=== PATIENT | male | born 1960 | race Caucasian/White ===

== ENCOUNTER 2018-08-14 10:19 | Inpatient (IN) ==
[2018-08-14] MEDS ORDERED: Sod Chloride 0.9% Inj 1,000 ML IV.SIG ONE (11:05)
[2018-08-14 11:20] LABS: Baso # (Auto) 0.2 th/mm3 (0.0-0.2); Baso % (Auto) 0.8 % (0.0-2.0); Eos # (Auto) 0.1 th/mm3 (0.0-0.4); Eos % (Auto) 0.4 % (0.0-4.0); Hemoglobin 15.2 gm/dL (13.0-17.0); Lymph # (Auto) 3.2 th/mm3 (1.0-4.8); Lymph % (Auto) 10.3 % (9.0-44.0); Mean Corpuscular Hemoglobin 31.5 pg (27.0-34.0); Mean Corpuscular Volume 103.5 fL (80.0-100.0); Mean Platelet Volume 10.4 fL (7.0-11.0); Mono # (Auto) 3.3 th/mm3 (0.0-0.9); Mono % (Auto) 10.6 % (0.0-8.0); Neut # (Auto) 24.2 th/mm3 (1.8-7.7); Neut % (Auto) 77.9 % (16.0-70.0); Platelet Count 336 th/mm3 (150-450); Red Blood Count 4.83 mil/mm3 (4.50-5.90); Red Cell Distribution Width 14.5 % (11.6-17.2)
--- NOTE | 2018-08-14 11:21 | ED ---
HPI General Chief complaint: Diabetic Stated complaint: diabeties Time Seen by Provider: 08/14/18 10:53 History of Present Illness HPI narrative: This patient reports that he has been up all night with vomiting and some diarrhea. He is insulin-dependent diabetic. He did not take his insulin today. Symptoms are severe. Paramedics bring him in and blood sugar just read critical high. His temperature was too low to register. He feels lethargic. He has no injury. He denies having fever. Duration 24 hours. No exacerbating factors. No alleviating factors. Related Data Home Medications Medication Instructions Recorded Confirmed insulin glargine [Lantus U-100 40 unit SUBCUT DAILY 08/14/18 08/14/18 Insulin] insulin regular human [Novolin R 1 sliding scale dose SUBCUT UD 08/14/18 Regular U-100 Insuln] Allergies Allergy/AdvReac Type Severity Reaction Status Date / Time No Known Allergies Allergy Verified 08/14/18 10:25 Review of Systems ROS: all other systems reviewed are negative [facility] Medical History Medical History Hx of diabetes mellitus (Acute) Surgical History Surgical History History of ear surgery (Acute) Hx of inguinal hernia repair (Acute) Social History Social History Substance History: No History of Abuse Second Hand Smoke Exposure: No Smoking Status: Never smoker How Often Do You Have a Drink Containing Alcohol: 2 to 4 times a month Recent Travel in [facility] within the Last 8 Weeks: No Recent Out of Country Travel within the Last 8 Weeks: No Immunization History Tetanus Immunization: Unsure Exam Narrative Exam Narrative: GENERAL: Thin lethargic well-developed patient who is hyperglycemic and hypothermic. Ketone breath is obvious SKIN: Focused skin assessment reveals no rash and nodules. Skin is Warm and dry. HEAD: Atraumatic. Normocephalic. EYES: Pupils equal and round. No scleral icterus. No injection or drainage. ENT: No nasal bleeding or discharge. Mucous membranes pink and moist. NECK: Trachea midline. No JVD. No meningeal signs CARDIOVASCULAR: Regular rate and rhythm. No murmur appreciated. RESPIRATORY: No accessory muscle use. Clear to auscultation. Breath sounds equal bilaterally. GASTROINTESTINAL: Abdomen soft, non-tender, nondistended. Hepatic and splenic margins not palpable. MUSCULOSKELETAL: No obvious deformities. No clubbing. No cyanosis. No edema. NEUROLOGICAL: Awake but drowsy. No obvious cranial nerve deficits. Motor grossly within normal limits. Normal speech. PSYCHIATRIC: Sluggish and lethargic mood and affect; insight and judgment a bit reduced Course Initial Documented Vital Signs Pulse Rate 91 H 08/14/18 10:26 Respiratory Rate 18 08/14/18 10:26 Blood Pressure 179/58 H 08/14/18 10:26 Pulse Oximetry 100 08/14/18 10:26 Last Documented Vital Signs Temperature 89.7 F L 08/14/18 11:32 Pulse Rate 93 H 08/14/18 11:32 Respiratory Rate 20 08/14/18 11:32 Blood Pressure 138/61 08/14/18 11:32 Pulse Oximetry 100 08/14/18 11:32 Critical Care Time Critical Care Time: Yes Total Critical Care Time: 82 Attestation: Aggregate critical care time was 82 minutes. Time to perform other separately billable procedures was not included in the critical care time. My time did not include minutes spent treating any other patients simultaneously or on activities that did not directly contribute to the patient's treatment. The services I provided to this patient were to treat and/or prevent clinically significant deterioration that could result in: Cardiopulmonary arrest, cardiac arrhythmia, metabolic instability I provided critical care services requiring my management, as noted below: Chart data review, documentation time, medication orders and management, vital sign assessments/reviewing monitor data, ordering and reviewing lab tests, ordering and interpreting/reviewing x-rays and diagnostic studies, care of the patient and discussion of the patient with the admitting physicians. Medical Decision Making MDM Narrative Medical decision making narrative: 58-year-old male who presents critically ill with suspected DKA and hypothermia. He has a rectal temp of 89 degrees I placed bilateral external jugular 18-gauge IVs. He has a third 18-gauge IV in the left arm. We are bolusing him multiple liters of saline and running one through the warmer. We placed him under the bear hugger warming blanket. I gave him 10 units IV regular insulin. Extensive lab studies have been ordered. EKG shows a sinus rhythm at 89. I do not see ectopy. I have given him a now 3 L of saline IV. I have given him IV calcium and 2 A of sodium bicarbonate Patient is very metabolically deranged. I discussed with the semiconductor wafers etch operator Dr. Leone who accepts him as an emergent transfer to the main hospital ICU. We are placing a fourth IV now. Patient is getting started on insulin drip plus normal saline at 250 an hour through the warmer. Dr. Leone is ordering a bicarbonate drip. Medical Screen Exam Complete: Yes Emergency Medical Condition: Yes Differential Diagnosis Differential Diagnosis: DKA, hypothermia, cardiac arrhythmia Medical Records Medical records reviewed: Yes I reviewed the patient's medical records. Lab Data Lab results reviewed: Yes I reviewed the patient's lab results. Result diagrams: 08/14/18 10:40 08/14/18 10:35 Lab Results 08/14/18 08/14/18 08/14/18 Range/Units 10:35 10:40 10:40 CBC w Diff Slide review pending WBC 31.0 H (4.0-11.0) th/mm3 RBC 4.83 (4.50-5.90) mil/mm3 Hgb 15.2 (13.0-17.0) gm/dL Hct 50.0 (39.0-51.0) % MCV 103.5 H (80.0-100.0) fL MCH 31.5 (27.0-34.0) pg MCHC 30.4 L (32.0-36.0) % RDW 14.5 (11.6-17.2) % Plt Count 336 (150-450) th/mm3 MPV 10.4 (7.0-11.0) fL Neut % (Auto) 77.9 H (16.0-70.0) % Lymph % (Auto) 10.3 (9.0-44.0) % [place]ama % (Auto) 10.6 H (0.0-8.0) % Eos % (Auto) 0.4 (0.0-4.0) % Baso % (Auto) 0.8 (0.0-2.0) % Neut # (Auto) 24.2 H (1.8-7.7) th/mm3 Lymph # (Auto) 3.2 (1.0-4.8) th/mm3 [place]ama # (Auto) 3.3 H (0.0-0.9) th/mm3 Eos # (Auto) 0.1 (0.0-0.4) th/mm3 Baso # (Auto) 0.2 (0.0-0.2) th/mm3 WBC Differential . Diff Scan Auto diff confirmed Differential Comment . Platelet Estimate Normal (Normal) Platelet Morphology Normal (Normal) RBC Morphology Normal (Normal) Puncture Site Patient Temperature O2 Saturation (90-100) % ABG pH (7.380-7.420) ABG pCO2 (38-42) mmHg ABG pO2 (61-120) mmHg ABG HCO3 (22-26) mmol/L ABG O2 Content (12.0-20.0) Vol % ABG Base Excess (-2-2) mmol/L ABG Methemoglobin (0-2) % Noman Test Hemoglobin (12.0-16.0) G/DL Carboxyhemoglobin (0-4) % O2 Delivery Device Critical Value Sodium 127 L (136-145) meq/L Potassium 6.6 H* (3.5-5.1) meq/L Chloride 90 L (98-107) meq/L Carbon Dioxide 3.4 L (21.0-32.0) meq/L Anion Gap 34 H (5-15) meq/L BUN 41 H (7-18) mg/dL Creatinine 2.60 H (0.60-1.30) mg/dL Estimated GFR 25 L (>89) mL/min Random Glucose 1014 H* (74-106) mg/dL Lactic Acid 4.8 H* (0.4-2.0) mmol/L Calcium 8.2 L (8.5-10.1) mg/dL Total Bilirubin 0.5 (0.2-1.0) mg/dL AST 30 (15-37) U/L ALT 66 (12-78) U/L Alkaline Phosphatase 91 (45-117) U/L Total Protein 7.4 (6.4-8.2) g/dL Albumin 3.9 (3.4-5.0) g/dL 08/14/18 Range/Units 11:26 CBC w Diff WBC (4.0-11.0) th/mm3 RBC (4.50-5.90) mil/mm3 Hgb (13.0-17.0) gm/dL Hct (39.0-51.0) % MCV (80.0-100.0) fL MCH (27.0-34.0) pg MCHC (32.0-36.0) % RDW (11.6-17.2) % Plt Count (150-450) th/mm3 MPV (7.0-11.0) fL Neut % (Auto) (16.0-70.0) % Lymph % (Auto) (9.0-44.0) % [place] % (Auto) (0.0-8.0) % Eos % (Auto) (0.0-4.0) % Baso % (Auto) (0.0-2.0) % Neut # (Auto) (1.8-7.7) th/mm3 Lymph # (Auto) (1.0-4.8) th/mm3 [place] # (Auto) (0.0-0.9) th/mm3 Eos # (Auto) (0.0-0.4) th/mm3 Baso # (Auto) (0.0-0.2) th/mm3 WBC Differential Diff Scan Differential Comment Platelet Estimate (Normal) Platelet Morphology (Normal) RBC Morphology (Normal) Puncture Site L1 Patient Temperature 98.6 O2 Saturation 96 (90-100) % ABG pH 6.84 L* (7.380-7.420) ABG pCO2 14 L* (38-42) mmHg ABG pO2 167 H (61-120) mmHg ABG HCO3 2 L* (22-26) mmol/L ABG O2 Content 19.4 (12.0-20.0) Vol % ABG Base Excess -28.6 L (-2-2) mmol/L ABG Methemoglobin 1.8 (0-2) % Noman Test Present Hemoglobin 14.1 (12.0-16.0) G/DL Carboxyhemoglobin 0.8 (0-4) % O2 Delivery Device Room air Critical Value Yes Sodium (136-145) meq/L Potassium (3.5-5.1) meq/L Chloride (98-107) meq/L Carbon Dioxide (21.0-32.0) meq/L Anion Gap (5-15) meq/L BUN (7-18) mg/dL Creatinine (0.60-1.30) mg/dL Estimated GFR (>89) mL/min Random Glucose (74-106) mg/dL Lactic Acid (0.4-2.0) mmol/L Calcium (8.5-10.1) mg/dL Total Bilirubin (0.2-1.0) mg/dL AST (15-37) U/L ALT (12-78) U/L Alkaline Phosphatase (45-117) U/L Total Protein (6.4-8.2) g/dL Albumin (3.4-5.0) g/dL Imaging Data Attestation: I personally reviewed and interpreted this imaging study as follows : My impression: Chest x-ray shows no consolidation. It looks normal Radiologist's impression: Chest X-Ray 08/14/18 11:05 CONCLUSION: No acute cardiopulmonary process. ECG Data EKG Prior to Arrival: No Attestation: I personally reviewed and interpreted this ECG as follows: Prior ECG tracings: not available for review Interpretation: EKG shows a sinus rhythm at 89. MS interval is 160 ms. [place] and MS interval are normal. No ectopy or ST elevation. Discharge Plan Discharge Disposition Patient Disposition: ED Admit(ED Internal Use Only) Discharge Order Discharge Orders: ED Use Only Admit Order (Routine); Ordered 08/14/18 Ordered By: Randy Denton Discharge Details Diagnosis: DKA, type 1, Hypothermia, initial encounter Physicians Team ED Provider: Randy Denton Primary Care Provider: Darryl Steward Attending Provider: Power Leone Discharge Interventions Interventions: Vital Signs Last Done: 08/14/18 11:32 Status ED Status: Admitted Patient
[2018-08-14 11:22] LABS: Alanine Aminotransferase 66 U/L (12-78); Albumin 3.9 g/dL (3.4-5.0); Alkaline Phosphatase 91 U/L (45-117); Anion Gap 34 meq/L (5-15); Aspartate Aminotransferase 30 U/L (15-37); Blood Urea Nitrogen 41 mg/dL (7-18); Calcium 8.2 mg/dL (8.5-10.1); Carbon Dioxide 3.4 meq/L (21.0-32.0); Chloride 90 meq/L (98-107); Glomerular Filtration Rate 25 mL/min (>89); Sodium 127 meq/L (136-145); Total Protein 7.4 g/dL (6.4-8.2)
[2018-08-14 11:25] LABS: Glucose,Random 1014 mg/dL (74-106); Potassium 6.6 meq/L (3.5-5.1)
[2018-08-14 11:27] LABS: Mean Corpuscular HGB Conc 30.4 % (32.0-36.0)
[2018-08-14] MEDS ORDERED: Sodium Bicarbonate 8.4% Inj 50 MEQ/50 ML Syringe IV.PUSH ONE (11:27)
[2018-08-14] MEDS ORDERED: Calcium Chloride Inj 1 GM/10 ML Syringe IV.PUSH ONE (11:28)
[2018-08-14] MEDS: Sod Chloride 0.9% Inj 1,000 ML IV.SIG SCH ×2 (11:30→14:22)
[2018-08-14 11:31] LABS: ABG Base Excess -28.6 mmol/L (-2-2); ABG PCO2 14 mmHg (38-42); ABG PO2 167 mmHg (61-120)
[2018-08-14] MEDS ORDERED: Dextrose 50% in Water 50 ML Vial IV.PUSH PRN (11:40)
[2018-08-14] MEDS ORDERED: Insulin Human-R 100 UNIT/100ML 100 UNIT/100 ML BAG IV.CONT ONE (11:40)
--- NOTE | 2018-08-14 11:53 | XR ---
EXAM DATE: 08/14/2018 11:38 AM EST AGE/SEX: 58 years / Male INDICATIONS: Hypothermia, diabetes CLINICAL DATA: This is the patient's initial encounter. Patient reports that signs and symptoms have been present for 1 day and indicates a pain score of 0/10. MEDICAL/SURGICAL HISTORY: . diabetes None. COMPARISON: [facility], CHEST PA & LAT, 03/12/2015. . FINDINGS: A single AP view of the chest demonstrates the lungs to be symmetrically aerated without evidence of mass, infiltrate or effusion. The cardiomediastinal contours are unremarkable. Osseous structures a re intact. CONCLUSION: No acute cardiopulmonary process. Electronically signed by: Daniel Flowers MD Board Certified Radiologist 08/14/2018 11:51 AM EST
[2018-08-14 11:55] LABS: RBC Morphology Normal (Normal)
[2018-08-14 11:56] LABS: Platelet Estimate Normal (Normal); Platelet Morphology Normal (Normal)
[2018-08-14] MEDS ORDERED: Sodium Phosphate Inj 15 MMOL in Sodium Chlor 0.9% Inj 100 ML IV.SIG PRN (12:01)
[2018-08-14] MEDS ORDERED: Potassium Chlor 40 mEq Premix 40 MEQ/100 ML PIGGYBACK IV.SIG PRN ×2 (12:01)
[2018-08-14] MEDS ORDERED: Potassium Chlor 20 mEq Premix 20 MEQ/100 ML PIGGYBACK IV.SIG PRN ×5 (12:01)
[2018-08-14] MEDS: Sod Chloride 0.9% Inj 1,000 ML IV.CONT SCH ×3 (12:11→21:22)
[2018-08-14] MEDS ORDERED: Dextrose 5%/NaCl 0.9% Inj 1,000 ML IV.CONT SCH (12:15)
[2018-08-14 12:45] LABS: Bilirubin,Urine Negative (Negative); Clarity,Urine Clear (Clear); Color,Urine Yellow (Yellw/Straw); Leukocyte Esterase,Urine Negative (Negative); Nitrite,Urine Negative (Negative); Specific Gravity,Urine Greater/Equal 1.030 (1.002-1.035); Urobilinogen,Urine 0.2 mg/dL (Less than 2)
--- NOTE | 2018-08-14 14:20 | P.HPCC ---
History of Present Illness Service: Critical care Primary Care Physician: Darryl Steward DO Chief Complaint: Nausea vomiting History of Present Illness: Patient is a 58-year-old male with past medical history significant for insulin-dependent type 2 diabetes for last 10 years who presented to the emergency department with severe intractable nausea and vomiting. He states that since yesterday morning he had been having nausea vomiting and some diarrhea associated with abdominal pain. No blood in stools no hematemesis. Because of nausea vomiting he did not take any of his insulin, and had been trying to hydrate himself with Gatorade. He denies any fever but subjectively felt cold. He did have flulike symptoms. ER workup showed a temperature of 89.7, white count was 31,000, he was also found to be in severe DKA pH of 6.8 bicarb 3 blood sugar of 1014 BUN was 41 creatinine 2.6. Sodium was 127 potassium 6.6 lactic acid was elevated at 4.8 and beta hydroxybutyrate was 14.13. Patient was given 2 normal saline boluses, was given insulin push and critical care medicine was consulted for admission. I have ordered broad- spectrum antibiotics after cultures are drawn. We will start patient on Zosyn and give 1 dose vancomycin. Check troponin to rule out cardiac ischemia. Stat transferred to [facility] ordered. Patient also placed on DKA protocol I evaluated the patient in the ICU once the patient reached [facility]. He is still very critical which still hypothermic. Slightly tachypneic. I have ordered a CT abdomen pelvis to rule out abdominal source of sepsis. Chest x-ray and UA unremarkable. EKG no acute changes - Diagnosis (1) DKA, type 1 (2) Hypothermia (3) Severe sepsis (4) Acute kidney failure (5) Lactic acidemia (6) Metabolic acidemia (7) Diabetes mellitus type 2, insulin dependent Inpatient Certification: I certify that the inpatient services were ordered in accordance with Medicare regulations governing the order. This includes certification that hospital inpatient services are reasonable and necessary and in the case of services not specified as inpatient-only under 42 CFR 419.22(n), that they are appropriately provided as inpatient services in accordance to with the 2-midnight benchmark under 43 CFR 412.3(e) Estimated Total Length of Stay (Days): 7 Plans for Post Hospital Care: Not yet determined Review of Systems All other systems reviewed negative except as stated in HPI [facility] - History History Provided By: Patient - Medical History Medical History: Medical History (Last Reviewed 08/14/18 @ 14:21 by Yanet Sanchez MD) Hx of diabetes mellitus - Surgical History Surgical History: Surgical History (Last Reviewed 08/14/18 @ 14:21 by Yanet Sanchez MD) History of ear surgery Hx of inguinal hernia repair - Tobacco History Second Hand Smoke Exposure: No Smoking Status: Never smoker - Alcohol History How Often Do You Have a Drink Containing Alcohol: 2 to 3 times a week - Substance Use History Substance History: No History of Abuse - Travel History Recent Travel in the [place] Within the Last 8 Weeks: No Recent Travel Out of the Country Within the Last 8 Weeks: No - Immunization History Tetanus Immunization: <5 Years Hx Influenza Vaccine This Season: No Medications and Allergies Active Medications: Active Medications Chlorhexidine Gluconate (Chlorhexidine 2% Cloth) 3 pack TOPICAL DAILY@0400 ELENO Stop: 08/20/18 03:59 Chlorhexidine Gluconate (Chlorhexidine 2% Cloth) 3 pack TOPICAL DAILY@0400 PRN PRN Reason: Extra cloth needed Stop: 08/20/18 03:59 Dextrose (D50w Vial) 50 ml IV.PUSH UNSCH PRN PRN Reason: PER HYPOGLYCEMIA PROTOCOL Dextrose/Sodium Chloride (D5w/Normal Saline Inj) 1,000 mls @ 200 mls/hr IV.CONT .Q5H ELENO Potassium Chloride (Kcl 40 Meq Premix Inj) 40 meq in 100 mls @ 100 mls/hr IV.SIG Q1H PRN PRN Reason: for Initial K+ ONLY < 3.5 Potassium Chloride (Kcl 40 Meq Premix Inj) 40 meq in 100 mls @ 50 mls/hr IV.SIG Q2H PRN PRN Reason: for Subsequent K+ < 3.5 Potassium Chloride (Kcl 20 Meq Premix Inj) 20 meq in 100 mls @ 100 mls/hr IV.SIG Q1H PRN PRN Reason: for K+ 3.5 to 4.4 Potassium Chloride (Kcl 20 Meq Premix Inj) 20 meq in 100 mls @ 100 mls/hr IV.SIG Q1H PRN PRN Reason: for K+ 4.5 to 5 Potassium Chloride (Kcl 20 Meq Premix Inj) 20 meq in 100 mls @ 50 mls/hr IV.SIG Q2H PRN PRN Reason: for Initial K+ ONLY < 3.5 Potassium Chloride (Kcl 20 Meq Premix Inj) 20 meq in 100 mls @ 50 mls/hr IV.SIG Q2H PRN PRN Reason: for K+ 3.5 to 4.4 Potassium Chloride (Kcl 20 Meq Premix Inj) 20 meq in 100 mls @ 50 mls/hr IV.SIG Q2H PRN PRN Reason: for K+ 4.5 to 5 Sodium Phosphate 15 mmol/ (Sodium Chloride) 105 mls @ 25 mls/hr IV.SIG UNSCH PRN PRN Reason: for Phosphate Level < 1.0 Sodium Chloride (Ns Inj) 1,000 mls @ 250 mls/hr IV.CONT .Q4H ELENO Last Infusion: 08/14/18 13:26 Dose: 250 mls/hr Potassium Chloride (Kcl 20 Meq Premix Inj) 20 meq in 100 mls @ 50 mls/hr IV.SIG Q2H PRN PRN Reason: for Subsequent K+ < 3.5 Insulin Human Regular 100 unit (/ Sodium Chloride) 100 mls @ 8 mls/hr IV.CONT TITRATE PRN; Protocol PRN Reason: See protocol Piperacillin/Tazobactam/Dextrose (Zosyn 3.375 Gm Premix) 3.375 gm in 50 mls @ 100 mls/hr IV.SIG Q8H ELENO Sodium Bicarbonate (Sodium Bicarbonate 8.4% Inj) 50 meq IV.PUSH UNSCH PRN PRN Reason: for pH 6.9 to 7.0 Sodium Bicarbonate (Sodium Bicarbonate 8.4% Inj) 100 meq IV.PUSH UNSCH PRN PRN Reason: for pH less than 6.9 Allergies Allergy/AdvReac Type Severity Reaction Status Date / Time No Known Allergies Allergy Verified 08/14/18 10:25 Home Medications Medication Instructions Recorded Confirmed Type insulin glargine [Lantus U-100 40 unit SUBCUT DAILY 08/14/18 08/14/18 History Insulin] insulin regular human [Novolin R 1 sliding scale dose SUBCUT UD 08/14/18 History Regular U-100 Insuln] Results - Labs CBC & Chem 7: 08/14/18 10:40 08/14/18 15:55 Labs: Short CBC 08/14/18 Range/Units 10:40 WBC 31.0 H (4.0-11.0) th/mm3 Hgb 15.2 (13.0-17.0) gm/dL Hct 50.0 (39.0-51.0) % Plt Count 336 (150-450) th/mm3 BMP 08/14/18 10:35 Sodium 127 L Potassium 6.6 H* Chloride 90 L Carbon Dioxide 3.4 L BUN 41 H Creatinine 2.60 H Calcium 8.2 L Liver Function 08/14/18 Range/Units 10:35 Total Bilirubin 0.5 (0.2-1.0) mg/dL AST 30 (15-37) U/L ALT 66 (12-78) U/L Alkaline Phosphatase 91 (45-117) U/L Albumin 3.9 (3.4-5.0) g/dL Urine 08/14/18 Range/Units 12:20 Urine Color Yellow (Yellw/Straw) Urine Clarity Clear (Clear) Urine pH 5.0 (5.0-8.5) Ur Specific [place] Greater/equal 1.030 (1.002-1.035) Urine Protein 100 H (Neg-Trace) mg/dL Urine Glucose (UA) 1000 or greater H (Negative) mg/dL - Imaging Impressions Chest X-Ray 08/14/18 11:05 CONCLUSION: No acute cardiopulmonary process. Exam Vital signs: Vital Signs 08/14/18 10:26 08/14/18 10:55 08/14/18 11:32 Temperature 89.7 F L 89.7 F L Pulse Rate 91 H 91 H 93 H Respiratory Rate 18 22 20 Blood Pressure 179/58 H 142/60 H 138/61 Pulse Oximetry 100 96 100 08/14/18 12:30 08/14/18 12:31 08/14/18 13:03 Temperature 91.5 F L 91.5 F L Pulse Rate 103 H 110 H Respiratory Rate 22 23 Blood Pressure 137/65 133/65 Pulse Oximetry 100 100 Intake & Output 08/13/18 08/14/18 08/14/18 18:59 06:59 18:59 Intake Total 2250 / 2250 Output Total 700 / 700 Balance 1550 / 1550 Weight 76.3 kg Intake: IV 2250 / 2250 NS Inj 1,000 ML @ 250 mls/hr IV 250 / 250 .CONT .Q4H [facility] Rx#:[id number] NS Inj 1,000 ML @ 1000 mls/hr 1999 IV.SIG .Q1H [facility] Rx#:[id number] Output: Urine Amount (Catheter) 700 / 700 Indwelling Urethral Catheter 700 / 700 Other: Weight On Admission 76.3 kg Narrative: GENERAL: 64-year-old male who is critically ill, lethargic and hypothermic. Ketone smell to breath SKIN: Skin is very cold and dry. HEAD: Atraumatic. Normocephalic. EYES: Pupils equal and round. No scleral icterus. No injection or drainage. ENT: No nasal bleeding or discharge. Mucous membranes dry NECK: Trachea midline. No JVD. No meningeal signs CARDIOVASCULAR: Regular rate and rhythm. No murmur appreciated. RESPIRATORY: No accessory muscle use. Clear to auscultation. Breath sounds equal bilaterally. GASTROINTESTINAL: Abdomen soft, non-tender, nondistended. Hepatic and splenic margins not palpable. MUSCULOSKELETAL: No obvious deformities. No clubbing. No cyanosis. No edema. NEUROLOGICAL: Awake alert intermittently shivering. No obvious cranial nerve deficits. Motor grossly within normal limits. Normal speech. Septic Shock Reassessment Septic shock perfusion: reassessment completed Caprini VTE Risk Assessment Caprini VTE Risk Assessment: Moderate/High Risk (score >= 2) Caprini Risk Assessment Model: Point Value = 1 Point Value = 2 Point Value = 3 Point Value = 5 Age 41-60 Minor surgery BMI > 25 kg/m2 Swollen legs Varicose veins or History of unexplained or recurrent spontaneous Oral contraceptives or hormone replacement Sepsis (< 1 month) Serious lung disease, including pneumonia (< 1 month) Abnormal pulmonary function Acute myocardial infarction Congestive heart failure (< 1 month) History of inflammatory bowel disease Medical patient at bed rest Age 61-74 Arthroscopic surgery Major open surgery (> 45 min) Laparoscopic surgery (> 45 min) Malignancy Confined to bed (> 72 hours) Immobilizing plaster cast Central venous access Age >= 75 History of VTE Family history of VTE Factor V Leiden Prothrombin [id number] Lupus anticoagulant Anticardiolipin antibodies Elevated serum homocysteine Heparin-induced thrombocytopenia Other congenital or acquired thrombophilia Stroke (< 1 month) Elective arthroplasty Hip, pelvis, or leg fracture Acute spinal cord injury (< 1 month) Prophylaxis Regimen: Total Risk Factor Score Risk Level Prophylaxis Regimen 0-1 Low Early ambulation 2 Moderate Order ONE of the following: *Sequential Compression Device (SCD) *Heparin 5000 units SQ BID 3-4 Higher Order ONE of the following medications: *Heparin 5000 units SQ TID *Enoxaparin/Lovenox 40 mg SQ daily (WT < 150 kg, CrCl > 30 mL/min) *Enoxaparin/Lovenox 30 mg SQ daily (WT < 150 kg, CrCl > 10-29 mL/min) *Enoxaparin/Lovenox 30 mg SQ BID (WT < 150 kg, CrCl > 30 mL/min) AND/OR *Sequential Compression Device (SCD) 5 or more Highest Order ONE of the following medications: *Heparin 5000 units SQ TID (Preferred with Epidurals) *Enoxaparin/Lovenox 40 mg SQ daily (WT < 150 kg, CrCl > 30 mL/min) *Enoxaparin/Lovenox 30 mg SQ daily (WT < 150 kg, CrCl > 10-29 mL/min) *Enoxaparin/Lovenox 30 mg SQ BID (WT < 150 kg, CrCl > 30 mL/min) AND *Sequential Compression Device (SCD) Assessment and Plan - Problem List (1) DKA, type 1 Code(s): E10.10 - Type 1 diabetes mellitus with ketoacidosis without coma Status: Acute (2) Hypothermia Code(s): T68.XXXA - Hypothermia, initial encounter Status: Acute (3) Severe sepsis Code(s): A41.9 - Sepsis, unspecified organism; R65.20 - Severe sepsis without septic shock Status: Acute (4) Acute kidney failure Code(s): N17.9 - Acute kidney failure, unspecified Status: Acute (5) Lactic acidemia Code(s): E87.2 - Acidosis Status: Acute (6) Metabolic acidemia Code(s): E87.2 - Acidosis Status: Acute (7) Diabetes mellitus type 2, insulin dependent Code(s): E11.9 - Type 2 diabetes mellitus without complications; 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: Chronic - Assessment and Plan Plan: NEURO: Acute metabolic encephalopathy History of alcohol abuse -Encephalopathy and blurred vision secondary to severe hyperglycemia -Supplement multivitamin thiamine -Closely for alcohol withdrawal RESP: Respiratory insufficiency -Tachypnea secondary to severe metabolic acidosis, will repeat ABG -DuoNeb as needed -Aggressive pulmonary toilet CV: Lactic acidosis -Normal saline IV fluids for liter boluses and maintenance per DKA protocol -Trend lactic acid GI: Nausea vomiting diarrhea -N.p.o., IV famotidine -CT abdomen pelvis ordered : Acute kidney failure -Monitor renal function closely. Sawyer catheter. -Fluid resuscitation as above ID: Severe sepsis Severe hypothermia -Antibiotics with 1 dose of vancomycin and scheduled Zosyn -Blood urine and sputum cultures -CT abdomen pelvis HEME: -Monitor CBC, coags ENDO: Diabetic ketoacidosis Type 2 diabetes -IV insulin and fluid resuscitation, electrolyte replacement per DKA protocol -No treatment of hyperkalemia as this will correct with insulin infusion -2 Amps of bicarb given no indication for bicarb drip at this time -Repeat ABG, if pHpersistently less than 7 start bicarb infusion -Electrolyte replacement per DKA protocol PROPH: -Bilateral lower extremity SCDs. Lovenox/famotidine LINES: -Utilize peripheral IVs, central line if needed CC time 45 min Code Status: Full H&P: Quality - VTE Deep Vein Thrombosis/Pulmonary Embolism Present on Admission: No (1) DKA, type 1 Qualifiers: Diabetes mellitus complication detail: without coma Qualified Code(s): E10.10 - Type 1 diabetes mellitus with ketoacidosis without coma
[2018-08-14] MEDS: Piperacil/Tazo 3.375 GM Premix 3.375 GM/50 ML PIGGYBACK IV.SIG SCH ×2 (14:22→21:21)
[2018-08-14] MEDS ORDERED: Sodium Chloride 0.9% 2 ML Flush PRN IV.FLUSH (14:24)
[2018-08-14] MEDS ORDERED: Vancomycin Inj 1,000 MG in Sodium Chlor 0.9% Inj 250 ML IV.SIG ONE (14:32)
[2018-08-14] MEDS: Insulin Regular (For Infusion) 100 UNIT in Sodium Chlor 0.9% Inj 99 ML IV.CONT PRN ×2 (14:40→22:05)
[2018-08-14 15:13] LABS: ABG Base Excess -21.9 mmol/L (-2-2); ABG PCO2 16 mmHg (38-42); ABG PO2 103 mmHG (61-120)
[2018-08-14] MEDS: Multivitamin Inj 10 ML, Thiamine Inj 100 MG, Folic Acid Inj 1 MG in Sodium Chlor 0.9% I... IV.SIG SCH (15:25)
[2018-08-14 15:51] LABS: Alanine Aminotransferase 58 U/L (12-78); Albumin 3.1 g/dL (3.4-5.0); Alkaline Phosphatase 72 U/L (45-117); Anion Gap 23 meq/L (5-15); Aspartate Aminotransferase 39 U/L (15-37); Blood Urea Nitrogen 47 mg/dL (7-18); Calcium 8.5 mg/dL (8.5-10.1); Carbon Dioxide 6.7 meq/L (21.0-32.0); Chloride 105 meq/L (98-107); Glomerular Filtration Rate 27 mL/min (>89); Glucose,Random 726 mg/dL (74-106); Potassium 5.4 meq/L (3.5-5.1); Sodium 135 meq/L (136-145)
[2018-08-14 17:40] LABS: Calcium 8.4 mg/dL (8.5-10.1); Carbon Dioxide 10.6 meq/L (21.0-32.0); Phosphorus 1.3 mg/dL (2.5-4.9); Potassium 4.1 meq/L (3.5-5.1)
[2018-08-14] MEDS: Potassium Chlor 20 mEq Premix 20 MEQ/100 ML PIGGYBACK IV.SIG PRN ×2 (17:57→22:38)
[2018-08-14] MEDS: Sodium Chloride 0.9% 2 ML Flush BID IV.FLUSH SCH (21:23)
[2018-08-15 00:29] LABS: Beta Hydroxybutyric Acid 0.61 mmol/L (0.00-0.39); Calcium 8.7 mg/dL (8.5-10.1); Carbon Dioxide 22.2 meq/L (21.0-32.0); Phosphorus 0.6 mg/dL (2.5-4.9); Potassium 3.8 meq/L (3.5-5.1)
[2018-08-15] MEDS ORDERED: DC previous DKA orders (HMC 1917) OTHER ONE (01:38)
[2018-08-15] MEDS ORDERED: DC Insulin drip 2 hrs post basal insulin dose OTHER ONE (01:38)
[2018-08-15] MEDS ORDERED: Insulin Glargine Inj 1,000 UNITS/10 ML Vial SQ ONE (01:45)
[2018-08-15] MEDS: KCL 20 mEq/D5W/NaCl 0.45% Inj 1,000 ML IV.CONT SCH ×3 (01:47→15:29)
[2018-08-15] MEDS ORDERED: Insulin Detemir Inj 1,000 UNIT/10 ML Vial SQ ONE (02:00)
[2018-08-15] MEDS ORDERED: Chlorhexidine Gluconate 2% 1 Pack (2 Cloths) TOPICAL PRN (04:00)
[2018-08-15] MEDS: Piperacil/Tazo 3.375 GM Premix 3.375 GM/50 ML PIGGYBACK IV.SIG SCH ×3 (07:23→22:55)
[2018-08-15] MEDS: Chlorhexidine Gluconate 2% 1 Pack (2 Cloths) TOPICAL SCH (07:23)
[2018-08-15] MEDS: Insulin NovoLOG Aspart Correctional Sugar Inj SQ SCH ×4 (08:07→21:22)
[2018-08-15] MEDS: Sodium Chloride 0.9% 2 ML Flush BID IV.FLUSH SCH ×2 (08:08→21:24)
--- NOTE | 2018-08-15 08:10 | P.PNCC ---
Subjective Subjective Remarks/Hospital Course: Patient is a 58-year-old male with past medical history significant for insulin-dependent type 2 diabetes for last 10 years who presented to the emergency department with severe intractable nausea and vomiting. He states that since yesterday morning he had been having nausea vomiting and some diarrhea associated with abdominal pain. No blood in stools no hematemesis. Because of nausea vomiting he did not take any of his insulin, and had been trying to hydrate himself with Gatorade. He denies any fever but subjectively felt cold. He did have flulike symptoms. ER workup showed a temperature of 89.7, white count was 31,000, he was also found to be in severe DKA pH of 6.8 bicarb 3 blood sugar of 1014 BUN was 41 creatinine 2.6. Sodium was 127 potassium 6.6 lactic acid was elevated at 4.8 and beta hydroxybutyrate was 14.13. Patient was given 2 normal saline boluses, was given insulin push and critical care medicine was consulted for admission. I have ordered broad- spectrum antibiotics after cultures are drawn. We will start patient on Zosyn and give 1 dose vancomycin. Check troponin to rule out cardiac ischemia. Stat transferred to [facility] ordered. Patient also placed on DKA protocol I evaluated the patient in the ICU once the patient reached [facility]. He is still very critical which still hypothermic. Slightly tachypneic. I have ordered a CT abdomen pelvis to rule out abdominal source of sepsis. Chest x-ray and UA unremarkable. EKG no acute changes 08/15: Patient is clinically improving DKA has resolved though still remaining hyperglycemic. DKA transition orders given overnight. Receiving Levemir. I will add pre-meal NovoLog 5 units due to hypoglycemia. CT of the abdomen pelvis is pending, I will cancel if CBC comes back normal Objective Vital Signs / I&O: Vital Signs 08/14/18 10:26 08/14/18 10:55 08/14/18 11:32 Temperature 89.7 F L 89.7 F L Pulse Rate 91 H 91 H 93 H Respiratory Rate 18 22 20 Blood Pressure 179/58 H 142/60 H 138/61 Pulse Oximetry 100 96 100 08/14/18 12:30 08/14/18 12:31 08/14/18 13:03 Temperature 91.5 F L 91.5 F L Pulse Rate 103 H 110 H Respiratory Rate 22 23 Blood Pressure 137/65 133/65 Pulse Oximetry 100 100 08/14/18 13:55 08/14/18 13:56 08/14/18 14:00 Temperature 96.1 F L 96.1 F L 96.3 F L Pulse Rate 118 H 116 H 115 H Respiratory Rate 23 25 H 23 Blood Pressure 142/69 H 133/61 Pulse Oximetry 100 100 100 08/14/18 14:30 08/14/18 15:00 08/14/18 15:30 Temperature 97.0 F L 97.5 F L 98.2 F Pulse Rate 113 H 114 H 113 H Respiratory Rate 23 25 H 18 Blood Pressure 127/58 L 129/60 132/66 Pulse Oximetry 100 99 99 08/14/18 16:00 08/14/18 16:30 08/14/18 17:00 Temperature 98.8 F 99.1 F 99.3 F Pulse Rate 113 H 115 H 111 H Respiratory Rate 22 30 H 25 H Blood Pressure 131/63 139/67 135/63 Pulse Oximetry 98 99 99 08/14/18 17:30 08/14/18 18:00 08/14/18 18:30 Temperature 99.5 F 99.7 F H 99.7 F H Pulse Rate 110 H 111 H 112 H Respiratory Rate 23 23 24 Blood Pressure 133/62 127/59 L 135/64 Pulse Oximetry 98 98 98 08/14/18 19:00 08/14/18 19:30 08/14/18 20:00 Temperature 99.7 F H 99.7 F H 99.9 F H Pulse Rate 108 H 108 H 106 H Respiratory Rate 24 22 25 H Blood Pressure 122/58 L 124/61 128/59 L Pulse Oximetry 98 97 97 08/14/18 20:30 08/14/18 21:00 08/14/18 21:30 Temperature 99.9 F H 99.9 F H 100.0 F H Pulse Rate 107 H 105 H 109 H Respiratory Rate 21 22 22 Blood Pressure 120/57 L 119/60 128/61 Pulse Oximetry 97 98 98 08/14/18 22:00 08/14/18 22:30 08/14/18 23:00 Temperature 100.2 F H 100.2 F H 100.2 F H Pulse Rate 106 H 109 H 108 H Respiratory Rate 25 H 23 18 Blood Pressure 126/58 L 122/57 L 123/62 Pulse Oximetry 97 97 97 08/14/18 23:30 08/15/18 00:00 08/15/18 00:30 Temperature 100.2 F H 100.0 F H 100.0 F H Pulse Rate 109 H 106 H 106 H Respiratory Rate 9 L 22 23 Blood Pressure 127/66 123/63 125/66 Pulse Oximetry 97 96 96 08/15/18 01:00 08/15/18 01:30 08/15/18 02:00 Temperature 100.0 F H 100.0 F H 100.0 F H Pulse Rate 106 H 106 H Respiratory Rate 26 H 24 23 Blood Pressure 123/66 127/67 138/66 Pulse Oximetry 96 97 99 08/15/18 02:30 08/15/18 03:00 08/15/18 03:30 Temperature 100.0 F H 100.0 F H 100.2 F H Pulse Rate 108 H 110 H 105 H Respiratory Rate 23 21 24 Blood Pressure 152/68 H 127/60 120/63 Pulse Oximetry 98 96 96 08/15/18 04:00 08/15/18 04:30 08/15/18 05:00 Temperature 100.0 F H 100.0 F H 99.7 F H Pulse Rate 105 H 103 H 101 H Respiratory Rate 20 21 21 Blood Pressure 130/67 129/69 126/62 Pulse Oximetry 96 97 97 08/15/18 05:30 08/15/18 06:00 08/15/18 06:31 Temperature 99.5 F 99.7 F H 99.7 F H Pulse Rate 105 H 99 H 95 H Respiratory Rate 27 H 20 20 Blood Pressure 118/74 134/62 142/67 H Pulse Oximetry 98 98 91 L 08/15/18 07:00 Temperature 99.7 F H Pulse Rate 101 H Respiratory Rate 20 Blood Pressure 132/69 Pulse Oximetry 98 Intake & Output 08/14/18 08/15/18 08/15/18 18:59 06:59 18:59 Intake Total 4329.3 / 4329.3 3900.2 / 3900.2 1050 / 1050 Output Total 2550 / 2550 2500 / 2500 Balance 1779.3 / 1779.3 1400.2 / 1400.2 1050 / 1050 Weight 76.3 kg 76 kg Intake: IV 4329.3 / 4329.3 3300.2 / 3300.2 1050 / 1050 D5W/Normal Saline Inj 1,000 ML 539 / 539 @ 200 mls/hr IV.CONT .Q5H ELENO Rx#:[id number] NovoLIN-R 100 UNITS/NS 100 ML ( 29.3 / 29.3 for ED) 100 unit In 100 ml @ Per Protocol IV.CONT TITRATE ONE Rx#:[id number] NovoLIN R (IV Infusion) 100 100 / 100 UNIT In NS Inj 99 ML @ 8 UNITS/ HR 8 mls/hr IV.CONT TITRATE PRN Rx#:[id number] D5W/1/2NS + KCL 20 mEq Inj 1, 1000 / 1000 000 ML @ 150 mls/hr IV.CONT . Q6H40M ELENO Rx#:[id number] NS Inj 1,000 ML @ 250 mls/hr IV 1000 / 1000 1900 / 1900 .CONT .Q4H ELENO Rx#:[id number] MVI-12 Inj 10 ML Thiamine Inj 511.2 / 511.2 100 MG Folvite Inj 1 MG In NS Inj 500 ML @ 125 mls/hr IV.SIG Q24H ELENO Rx#:[id number] Zosyn 3.375 GM Premix 3.375 gm 50 / 50 50 / 50 50 / 50 In 50 ml @ 100 mls/hr IV.SIG Q8H ELENO Rx#:[id number] KCl 20 mEq Premix Inj 20 meq In 200 / 200 100 ml @ 100 mls/hr IV.SIG Q1H PRN Rx#:[id number] NS Inj 1,000 ML @ 1000 mls/hr 3000 / 3000 IV.SIG .Q1H ELENO Rx#:[id number] Vancomycin Inj 1,000 MG In NS 250 / 250 Inj 250 ML @ 250 mls/hr IV.SIG ONCE ONE Rx#:[id number] Oral 600 / 600 Output: Urine Amount (Catheter) 2550 / 2550 2500 / 2500 Indwelling Urethral Catheter 2550 / 2550 2500 / 2500 Other: Weight On Admission 76.3 kg Result Diagrams: 08/14/18 10:40 08/15/18 00:00 Objective Remarks: GENERAL: 64-year-old male who is ill-appearing, but improving SKIN: Skin is cold and dry. HEAD: Atraumatic. Normocephalic. EYES: Pupils equal and round. No scleral icterus. No injection or drainage. ENT: No nasal bleeding or discharge. Mucous membranes dry NECK: Trachea midline. No JVD. No meningeal signs CARDIOVASCULAR: Regular rate and rhythm. No murmur appreciated. RESPIRATORY: No accessory muscle use. Clear to auscultation. Breath sounds equal bilaterally. GASTROINTESTINAL: Abdomen soft, non-tender, nondistended. Hepatic and splenic margins not palpable. MUSCULOSKELETAL: No obvious deformities. No clubbing. No cyanosis. No edema. NEUROLOGICAL: Awake alert. No obvious cranial nerve deficits. Motor grossly within normal limits. Normal speech. Assessment and Plan - Problem List (1) DKA, type 1 Code(s): E10.10 - Type 1 diabetes mellitus with ketoacidosis without coma Status: Acute (2) Hypothermia Code(s): T68.XXXA - Hypothermia, initial encounter Status: Acute (3) Severe sepsis Code(s): A41.9 - Sepsis, unspecified organism; R65.20 - Severe sepsis without septic shock Status: Acute (4) Acute kidney failure Code(s): N17.9 - Acute kidney failure, unspecified Status: Acute (5) Lactic acidemia Code(s): E87.2 - Acidosis Status: Acute (6) Metabolic acidemia Code(s): E87.2 - Acidosis Status: Acute (7) Diabetes mellitus type 2, insulin dependent Code(s): E11.9 - Type 2 diabetes mellitus without complications; Z79.4 - exterminator (current) use of insulin Status: Chronic - Assessment and Plan Plan: NEURO: Acute metabolic encephalopathy History of alcohol abuse -Encephalopathy and blurred vision secondary to severe hyperglycemia, now resolved -Supplement multivitamin thiamine -Closely for alcohol withdrawal RESP: Respiratory insufficiency -Tachypnea secondary to severe metabolic acidosis, will repeat ABG -DuoNeb as needed -Aggressive pulmonary toilet CV: Lactic acidosis -Continue maintenance IV fluids -Trend lactic acid GI: Nausea vomiting diarrhea -ADA diet, IV famotidine -CT abdomen pelvis ordered, still pending : Acute kidney failure -Monitor renal function closely. Discontinue Sawyer catheter. -Fluid resuscitation as above ID: Severe sepsis Severe hypothermia -Antibiotics with 1 dose of vancomycin and scheduled Zosyn -Blood cultures are pending -CT abdomen pelvis pending HEME: -Monitor CBC, coags ENDO: Diabetic ketoacidosis-resolved Type 2 diabetes -DKA has resolved and had been transitioned to subcu Levemir and sliding scale -Add pre-meal 5 units NovoLog due to hypoglycemia -Diabetic education PROPH: -Bilateral lower extremity SCDs. Lovenox/famotidine LINES: -Utilize peripheral IVs, central line if needed Level 2 Consult hospitalist to assume care 08/16/2018. Transfer to [facility] with telemetry (1) DKA, type 1 Qualifiers: Diabetes mellitus complication detail: without coma Qualified Code(s): E10.10 - Type 1 diabetes mellitus with ketoacidosis without coma
[2018-08-15 09:24] LABS: Baso % (Auto) 0.2 % (0.0-2.0); Hematocrit 37.5 % (39.0-51.0); Hemoglobin 13.3 gm/dL (13.0-17.0); Lymph # (Auto) 0.6 th/mm3 (1.0-4.8); Lymph % (Auto) 3.5 % (9.0-44.0); Mean Corpuscular HGB Conc 35.6 % (32.0-36.0); Mean Corpuscular Hemoglobin 32.6 pg (27.0-34.0); Mean Corpuscular Volume 91.6 fL (80.0-100.0); Mean Platelet Volume 8.3 fL (7.0-11.0); Mono # (Auto) 1.2 th/mm3 (0.0-0.9); Mono % (Auto) 7.2 % (0.0-8.0); Neut # (Auto) 14.9 th/mm3 (1.8-7.7); Neut % (Auto) 89.1 % (16.0-70.0); Platelet Count 163 th/mm3 (150-450); Red Blood Count 4.09 mil/mm3 (4.50-5.90); Red Cell Distribution Width 13.2 % (11.6-17.2); White Blood Count 16.8 th/mm3 (4.0-11.0)
--- NOTE | 2018-08-15 10:31 | P.CONFP ---
History of Present Illness Service: Family Medicine Consult date: 08/15/18 Reason for Consult: To assume care on 08/16/18 S/P DKA Primary Care Provider: Darryl Steward DO Chief Complaint: Nausea vomiting History of Present Illness: The patient is a 58-year-old male with past medical history significant for insulin-dependent type 2 diabetes for last 10 years who presented to the emergency department with severe intractable nausea and vomiting. He stated that 2 days ago he developed nausea vomiting and some diarrhea associated with abdominal pain without blood in stools or hematemesis. Because of nausea vomiting he did not take any of his insulin, and had been trying to hydrate himself with Gatorade. He denies any fever but subjectively felt cold with shaking chills and had flulike symptoms. ER workup showed a temperature of 89.7, white count was 31,000, he was also found to be in severe DKA pH of 6.8 bicarb 3 blood sugar of 1014 BUN was 41 creatinine 2.6. Sodium was 127 potassium 6.6 lactic acid was elevated at 4.8 and beta hydroxybutyrate was 14.13. Patient was given 2 normal saline boluses, was given insulin push and critical care medicine was consulted for admission. He was started on broad -spectrum antibiotics after cultures were drawn and remains on Zosyn and given 1 dose vancomycin. Troponin ruled out cardiac ischemia and he was transferred to [facility] ordered and the DKA protocol was adm. We have been consulted to assume care tomorrow and he is anticipating transfer to a medical floor. A CT abdomen pelvis to rule out abdominal source of sepsis is pending. Chest x-ray and UA unremarkable. EKG no acute changes. Review of Systems Constitutional: Reports body ache(s), Reports weakness Eyes: Reports blurry vision Ears, Nose, Mouth, and Throat: Reports dizziness, Denies difficulty swallowing Cardiovascular: Denies chest pain, Denies leg swelling, Denies lightheadedness Respiratory: Denies chest congestion, Denies shortness of breath with activity Gastrointestinal: Denies abdominal pain, Denies bright, red blood in stools Genitourinary: Reports decreased urination Musculoskeletal: Reports body aches, Denies back pain Neurologic: Denies abnormal movements, Denies abnormal walking, Denies fainting Psychiatric: Denies anxiety, Denies behavioral changes Endocrine: Reports increased hunger Hematologic/Lymphatic: Denies easy bleeding Allergic/Immunologic: Denies GI upset with certain foods PMFSH - History History Provided By: Patient - Medical History Medical History: Medical History (Last Reviewed 08/15/18 @ 10:24 by Augustus Goel) Hx of diabetes mellitus - Surgical History Surgical History: Surgical History (Last Reviewed 08/15/18 @ 10:24 by Augustus Goel) History of ear surgery Hx of inguinal hernia repair - Social History I have reviewed the patient's Social History: Yes - Tobacco History Second Hand Smoke Exposure: No Smoking Status: Never smoker - Alcohol History How Often Do You Have a Drink Containing Alcohol: 2 to 3 times a week - Substance Use History Substance History: No History of Abuse - Travel History History of Recent Travel: No Recent Travel in the [place] Within the Last 8 Weeks: No Recent Travel Out of the Country Within the Last 8 Weeks: No - Immunization History Tetanus Immunization: <5 Years Hx Influenza Vaccine This Season: No Medications and Allergies Active Medications: Active Medications Chlorhexidine Gluconate (Chlorhexidine 2% Cloth) 3 pack TOPICAL DAILY@0400 [facility] Stop: 08/20/18 03:59 Last Admin: 08/15/18 07:23 Dose: 3 pack Chlorhexidine Gluconate (Chlorhexidine 2% Cloth) 3 pack TOPICAL DAILY@0400 PRN PRN Reason: Extra cloth needed Stop: 08/20/18 03:59 Dextrose (D50w Vial) 50 ml IV.PUSH UNSCH PRN PRN Reason: PER HYPOGLYCEMIA PROTOCOL Glucagon (Glucagon Inj) 1 mg OTHER PRN PRN PRN Reason: for Hypoglycemia Protocol Potassium Chloride (Kcl 40 Meq Premix Inj) 40 meq in 100 mls @ 100 mls/hr IV.SIG Q1H PRN PRN Reason: for Initial K+ ONLY < 3.5 Potassium Chloride (Kcl 40 Meq Premix Inj) 40 meq in 100 mls @ 50 mls/hr IV.SIG Q2H PRN PRN Reason: for Subsequent K+ < 3.5 Potassium Chloride (Kcl 20 Meq Premix Inj) 20 meq in 100 mls @ 100 mls/hr IV.SIG Q1H PRN PRN Reason: for K+ 3.5 to 4.4 Last Infusion: 08/15/18 01:48 Dose: Infused Potassium Chloride (Kcl 20 Meq Premix Inj) 20 meq in 100 mls @ 100 mls/hr IV.SIG Q1H PRN PRN Reason: for K+ 4.5 to 5 Potassium Chloride (Kcl 20 Meq Premix Inj) 20 meq in 100 mls @ 50 mls/hr IV.SIG Q2H PRN PRN Reason: for Initial K+ ONLY < 3.5 Potassium Chloride (Kcl 20 Meq Premix Inj) 20 meq in 100 mls @ 50 mls/hr IV.SIG Q2H PRN PRN Reason: for K+ 3.5 to 4.4 Potassium Chloride (Kcl 20 Meq Premix Inj) 20 meq in 100 mls @ 50 mls/hr IV.SIG Q2H PRN PRN Reason: for K+ 4.5 to 5 Sodium Phosphate 15 mmol/ (Sodium Chloride) 105 mls @ 25 mls/hr IV.SIG UNSCH PRN PRN Reason: for Phosphate Level < 1.0 Sodium Chloride (Ns Inj) 1,000 mls @ 250 mls/hr IV.CONT .Q4H [facility] Last Infusion: 08/15/18 00:41 Dose: 0 mls/hr Potassium Chloride (Kcl 20 Meq Premix Inj) 20 meq in 100 mls @ 50 mls/hr IV.SIG Q2H PRN PRN Reason: for Subsequent K+ < 3.5 Piperacillin/Tazobactam/Dextrose (Zosyn 3.375 Gm Premix) 3.375 gm in 50 mls @ 100 mls/hr IV.SIG Q8H [facility] Last Infusion: 08/15/18 08:00 Dose: Infused Multivitamins 10 ml/ Thiamine HCl 100 mg/ Folic Acid 1 mg/Sodium Chloride 511.2 mls @ 125 mls/hr IV.SIG Q24H [facility] Stop: 08/16/18 19:06 Last Infusion: 08/14/18 22:37 Dose: Infused Potassium Chloride/Dextrose/Sod Cl (D5w/1/2ns + Kcl 20 Meq Inj) 1,000 mls @ 150 mls/hr IV.CONT .Q6H40M [facility] Last Admin: 08/15/18 08:07 Dose: 150 mls/hr Insulin Aspart (Novolog Insulin Correctional Sugar Inj) 0 unit SQ ACHS [facility]; Protocol Last Admin: 08/15/18 08:07 Dose: 10 unit Insulin Aspart (Novolog Inj) 5 units SQ AC [facility] Last Admin: 08/15/18 08:47 Dose: 5 units Insulin Detemir (Levemir Inj) 30 unit SQ HS [facility] Sodium Bicarbonate (Sodium Bicarbonate 8.4% Inj) 50 meq IV.PUSH UNSCH PRN PRN Reason: for pH 6.9 to 7.0 Sodium Bicarbonate (Sodium Bicarbonate 8.4% Inj) 100 meq IV.PUSH UNSCH PRN PRN Reason: for pH less than 6.9 Last Admin: 08/14/18 15:20 Dose: 50 meq Sodium Chloride (Ns Flush) 2 ml IV.FLUSH BID [facility] Last Admin: 08/15/18 08:08 Dose: 2 ml Sodium Chloride (Ns Flush) 2 ml IV.FLUSH PRN PRN PRN Reason: FLUSH AFTER USING IV ACCESS Last Admin: 08/15/18 08:08 Dose: 2 ml Allergies Allergy/AdvReac Type Severity Reaction Status Date / Time No Known Allergies Allergy Verified 08/14/18 10:25 Home Medications Medication Instructions Recorded Confirmed Type insulin glargine [Lantus U-100 40 unit SUBCUT DAILY 08/14/18 08/14/18 History Insulin] insulin regular human [Novolin R 1 sliding scale dose SUBCUT UD 08/14/18 History Regular U-100 Insuln] Exam Vital signs: Vital Signs 08/14/18 10:26 08/14/18 10:55 08/14/18 11:32 Temperature 89.7 F L 89.7 F L Pulse Rate 91 H 91 H 93 H Respiratory Rate 18 22 20 Blood Pressure 179/58 H 142/60 H 138/61 Pulse Oximetry 100 96 100 08/14/18 12:30 08/14/18 12:31 08/14/18 13:03 Temperature 91.5 F L 91.5 F L Pulse Rate 103 H 110 H Respiratory Rate 22 23 Blood Pressure 137/65 133/65 Pulse Oximetry 100 100 08/14/18 13:55 08/14/18 13:56 08/14/18 14:00 Temperature 96.1 F L 96.1 F L 96.3 F L Pulse Rate 118 H 116 H 115 H Respiratory Rate 23 25 H 23 Blood Pressure 142/69 H 133/61 Pulse Oximetry 100 100 100 08/14/18 14:30 08/14/18 15:00 08/14/18 15:30 Temperature 97.0 F L 97.5 F L 98.2 F Pulse Rate 113 H 114 H 113 H Respiratory Rate 23 25 H 18 Blood Pressure 127/58 L 129/60 132/66 Pulse Oximetry 100 99 99 08/14/18 16:00 08/14/18 16:30 08/14/18 17:00 Temperature 98.8 F 99.1 F 99.3 F Pulse Rate 113 H 115 H 111 H Respiratory Rate 22 30 H 25 H Blood Pressure 131/63 139/67 135/63 Pulse Oximetry 98 99 99 08/14/18 17:30 08/14/18 18:00 08/14/18 18:30 Temperature 99.5 F 99.7 F H 99.7 F H Pulse Rate 110 H 111 H 112 H Respiratory Rate 23 23 24 Blood Pressure 133/62 127/59 L 135/64 Pulse Oximetry 98 98 98 08/14/18 19:00 08/14/18 19:30 08/14/18 20:00 Temperature 99.7 F H 99.7 F H 99.9 F H Pulse Rate 108 H 108 H 106 H Respiratory Rate 24 22 25 H Blood Pressure 122/58 L 124/61 128/59 L Pulse Oximetry 98 97 97 08/14/18 20:30 08/14/18 21:00 18 21:30 Temperature 99.9 F H 99.9 F H 100.0 F H Pulse Rate 107 H 105 H 109 H Respiratory Rate 21 22 22 Blood Pressure 120/57 L 119/60 128/61 Pulse Oximetry 97 98 98 08/14/18 22:00 08/14/18 22:30 08/14/18 23:00 Temperature 100.2 F H 100.2 F H 100.2 F H Pulse Rate 106 H 109 H 108 H Respiratory Rate 25 H 23 18 Blood Pressure 126/58 L 122/57 L 123/62 Pulse Oximetry 97 97 97 08/14/18 23:30 18 00:00 08/15/18 00:30 Temperature 100.2 F H 100.0 F H 100.0 F H Pulse Rate 109 H 106 H 106 H Respiratory Rate 9 L 22 23 Blood Pressure 127/66 123/63 125/66 Pulse Oximetry 97 96 96 08/15/18 01:00 08/15/18 01:30 08/15/18 02:00 Temperature 100.0 F H 100.0 F H 100.0 F H Pulse Rate 106 H 106 H Respiratory Rate 26 H 24 23 Blood Pressure 123/66 127/67 138/66 Pulse Oximetry 96 97 99 08/15/18 02:30 08/15/18 03:00 08/15/18 03:30 Temperature 100.0 F H 100.0 F H 100.2 F H Pulse Rate 108 H 110 H 105 H Respiratory Rate 23 21 24 Blood Pressure 152/68 H 127/60 120/63 Pulse Oximetry 98 96 96 08/15/18 04:00 08/15/18 04:30 08/15/18 05:00 Temperature 100.0 F H 100.0 F H 99.7 F H Pulse Rate 105 H 103 H 101 H Respiratory Rate 20 21 21 Blood Pressure 130/67 129/69 126/62 Pulse Oximetry 96 97 97 08/15/18 05:30 08/15/18 06:00 08/15/18 06:31 Temperature 99.5 F 99.7 F H 99.7 F H Pulse Rate 105 H 99 H 95 H Respiratory Rate 27 H 20 20 Blood Pressure 118/74 134/62 142/67 H Pulse Oximetry 98 98 91 L 08/15/18 07:00 08/15/18 07:30 08/15/18 08:00 Temperature 99.7 F H 99.9 F H 99.9 F H Pulse Rate 101 H 103 H 104 H Respiratory Rate 20 23 26 H Blood Pressure 132/69 130/72 140/75 Pulse Oximetry 98 99 96 08/15/18 08:30 08/15/18 09:00 08/15/18 09:30 Temperature 99.7 F H Pulse Rate 101 H 104 H 110 H Respiratory Rate 23 19 30 H Blood Pressure 125/72 125/68 134/66 Pulse Oximetry 98 97 98 Intake & Output 08/14/18 08/15/18 08/15/18 18:59 06:59 18:59 Intake Total 4329.3 / 4329.3 3900.2 / 3900.2 1050 / 1050 Output Total 2550 / 2550 2500 / 2500 Balance 1779.3 / 1779.3 1400.2 / 1400.2 1050 / 1050 Weight 76.3 kg 76 kg Intake: IV 4329.3 / 4329.3 3300.2 / 3300.2 1050 / 1050 D5W/Normal Saline Inj 1,000 ML 539 / 539 @ 200 mls/hr IV.CONT .Q5H [facility] Rx#:[id number] NovoLIN-R 100 UNITS/NS 100 ML ( 29.3 / 29.3 for ED) 100 unit In 100 ml @ Per Protocol IV.CONT TITRATE ONE Rx#:[id number] NovoLIN R (IV Infusion) 100 100 / 100 UNIT In NS Inj 99 ML @ 8 UNITS/ HR 8 mls/hr IV.CONT TITRATE PRN Rx#:[id number] D5W/1/2NS + KCL 20 mEq Inj 1, 1000 / 1000 000 ML @ 150 mls/hr IV.CONT . Q6H40M [facility] Rx#:[id number] NS Inj 1,000 ML @ 250 mls/hr IV 1000 / 1000 1900 / 1900 .CONT .Q4H [facility] Rx#:[id number] MVI-12 Inj 10 ML Thiamine Inj 511.2 / 511.2 100 MG Folvite Inj 1 MG In NS Inj 500 ML @ 125 mls/hr IV.SIG Q24H [facility] Rx#:[id number] Zosyn 3.375 GM Premix 3.375 gm 50 / 50 50 / 50 50 / 50 In 50 ml @ 100 mls/hr IV.SIG Q8H [facility] Rx#:[id number] KCl 20 mEq Premix Inj 20 meq In 200 / 200 100 ml @ 100 mls/hr IV.SIG Q1H PRN Rx#:[id number] NS Inj 1,000 ML @ 1000 mls/hr 3000 / 3000 IV.SIG .Q1H [facility] Rx#:[id number] Vancomycin Inj 1,000 MG In NS 250 / 250 Inj 250 ML @ 250 mls/hr IV.SIG ONCE ONE Rx#:[id number] Oral 600 / 600 Output: Urine Amount (Catheter) 2550 / 2550 2500 / 2500 Indwelling Urethral Catheter 2550 / 2550 2500 / 2500 Other: Weight On Admission 76.3 kg - Constitutional no acute distress - Routine HEENT Exam Head: Present: normocephalic, atraumatic Eye: Present: PERRL, normal accommodation ENT: Present: mucous membranes moist - Routine Neck Exam Present: supple, full ROM - Routine Respiratory Exam Present: CTA bilaterally - Routine Cardiovascular Exam Present: RRR, S1, S2 - Routine Abdominal Exam Present: soft, normoactive bowel sounds - Routine Extremities Exam Present: full ROM. Absent: cyanosis - Routine Skin Exam Present: intact - Routine Neurological Exam Present: alert, oriented X3 Results - Labs Result diagrams: 08/15/18 09:15 08/15/18 00:00 Abnormal lab results 08/14/18 08/14/18 08/14/18 Range/Units 10:35 10:35 10:40 WBC 31.0 H (4.0-11.0) th/mm3 RBC (4.50-5.90) mil/mm3 Hct (39.0-51.0) % MCV 103.5 H (80.0-100.0) fL MCHC 30.4 L (32.0-36.0) % Neut % (Auto) 77.9 H (16.0-70.0) % Lymph % (Auto) (9.0-44.0) % [place] % (Auto) 10.6 H (0.0-8.0) % Neut # (Auto) 24.2 H (1.8-7.7) th/mm3 Lymph # (Auto) (1.0-4.8) th/mm3 [place] # (Auto) 3.3 H (0.0-0.9) th/mm3 ABG pH (7.380-7.420) ABG pCO2 (38-42) mmHg ABG pO2 (61-120) mmHg ABG HCO3 (22-26) mmol/L ABG Base Excess (-2-2) mmol/L Sodium 127 L (136-145) meq/L Potassium 6.6 H* (3.5-5.1) meq/L Chloride 90 L (98-107) meq/L Carbon Dioxide 3.4 L (21.0-32.0) meq/L Anion Gap 34 H (5-15) meq/L BUN 41 H (7-18) mg/dL Creatinine 2.60 H (0.60-1.30) mg/dL Estimated GFR 25 L (>89) mL/min POC Glucose (68-110) mg/dl Random Glucose 1014 H* (74-106) mg/dL Lactic Acid (0.4-2.0) mmol/L Calcium 8.2 L (8.5-10.1) mg/dL Phosphorus (2.5-4.9) mg/dL AST (15-37) U/L Total Protein (6.4-8.2) g/dL Albumin (3.4-5.0) g/dL Beta-Hydroxybutyric Acd 14.13 H (0.00-0.39) mmol/L Urine Protein (Neg-Trace) mg/dL Urine Glucose (UA) (Negative) mg/dL Urine Ketones (Negative) mg/dL Urine Occult Blood (Negative) 08/14/18 08/14/18 08/14/18 Range/Units 10:40 11:26 12:20 WBC (4.0-11.0) th/mm3 RBC (4.50-5.90) mil/mm3 Hct (39.0-51.0) % MCV (80.0-100.0) fL MCHC (32.0-36.0) % Neut % (Auto) (16.0-70.0) % Lymph % (Auto) (9.0-44.0) % [place] % (Auto) (0.0-8.0) % Neut # (Auto) (1.8-7.7) th/mm3 Lymph # (Auto) (1.0-4.8) th/mm3 [place] # (Auto) (0.0-0.9) th/mm3 ABG pH 6.84 L* (7.380-7.420) ABG pCO2 14 L* (38-42) mmHg ABG pO2 167 H (61-120) mmHg ABG HCO3 2 L* (22-26) mmol/L ABG Base Excess -28.6 L (-2-2) mmol/L Sodium (136-145) meq/L Potassium (3.5-5.1) meq/L Chloride (98-107) meq/L Carbon Dioxide (21.0-32.0) meq/L Anion Gap (5-15) meq/L BUN (7-18) mg/dL Creatinine (0.60-1.30) mg/dL Estimated GFR (>89) mL/min POC Glucose (68-110) mg/dl Random Glucose (74-106) mg/dL Lactic Acid 4.8 H* (0.4-2.0) mmol/L Calcium (8.5-10.1) mg/dL Phosphorus (2.5-4.9) mg/dL AST (15-37) U/L Total Protein (6.4-8.2) g/dL Albumin (3.4-5.0) g/dL Beta-Hydroxybutyric Acd (0.00-0.39) mmol/L Urine Protein 100 H (Neg-Trace) mg/dL Urine Glucose (UA) 1000 or greater H (Negative) mg/dL Urine Ketones 80 or greater H (Negative) mg/dL Urine Occult Blood Moderate H (Negative) 08/14/18 08/14/18 08/14/18 Range/Units 12:26 13:48 13:55 WBC (4.0-11.0) th/mm3 RBC (4.50-5.90) mil/mm3 Hct (39.0-51.0) % MCV (80.0-100.0) fL MCHC (32.0-36.0) % Neut % (Auto) (16.0-70.0) % Lymph % (Auto) (9.0-44.0) % [place] % (Auto) (0.0-8.0) % Neut # (Auto) (1.8-7.7) th/mm3 Lymph # (Auto) (1.0-4.8) th/mm3 [place] # (Auto) (0.0-0.9) th/mm3 ABG pH (7.380-7.420) ABG pCO2 (38-42) mmHg ABG pO2 (61-120) mmHg ABG HCO3 (22-26) mmol/L ABG Base Excess (-2-2) mmol/L Sodium (136-145) meq/L Potassium (3.5-5.1) meq/L Chloride (98-107) meq/L Carbon Dioxide (21.0-32.0) meq/L Anion Gap (5-15) meq/L BUN (7-18) mg/dL Creatinine (0.60-1.30) mg/dL Estimated GFR (>89) mL/min POC Glucose Greater than 600 H* Greater than 600 H* (68-110) mg/dl Random Glucose 855 H* D (74-106) mg/dL Lactic Acid (0.4-2.0) mmol/L Calcium (8.5-10.1) mg/dL Phosphorus (2.5-4.9) mg/dL AST (15-37) U/L Total Protein (6.4-8.2) g/dL Albumin (3.4-5.0) g/dL Beta-Hydroxybutyric Acd (0.00-0.39) mmol/L Urine Protein (Neg-Trace) mg/dL Urine Glucose (UA) (Negative) mg/dL Urine Ketones (Negative) mg/dL Urine Occult Blood (Negative) 08/14/18 08/14/18 08/14/18 Range/Units 14:58 15:05 15:09 WBC (4.0-11.0) th/mm3 RBC (4.50-5.90) mil/mm3 Hct (39.0-51.0) % MCV (80.0-100.0) fL MCHC (32.0-36.0) % Neut % (Auto) (16.0-70.0) % Lymph % (Auto) (9.0-44.0) % [place] % (Auto) (0.0-8.0) % Neut # (Auto) (1.8-7.7) th/mm3 Lymph # (Auto) (1.0-4.8) th/mm3 [place] # (Auto) (0.0-0.9) th/mm3 ABG pH 7.16 L* (7.380-7.420) ABG pCO2 16 L* (38-42) mmHg ABG pO2 (61-120) mmHg ABG HCO3 5 L* (22-26) mmol/L ABG Base Excess -21.9 L (-2-2) mmol/L Sodium 135 L (136-145) meq/L Potassium 5.4 H D (3.5-5.1) meq/L Chloride (98-107) meq/L Carbon Dioxide 6.7 L (21.0-32.0) meq/L Anion Gap 23 H (5-15) meq/L BUN 47 H (7-18) mg/dL Creatinine 2.45 H (0.60-1.30) mg/dL Estimated GFR 27 L (>89) mL/min POC Glucose Greater than 600 H* (68-110) mg/dl Random Glucose 726 H* D (74-106) mg/dL Lactic Acid (0.4-2.0) mmol/L Calcium (8.5-10.1) mg/dL Phosphorus (2.5-4.9) mg/dL AST 39 H (15-37) U/L Total Protein 6.0 L D (6.4-8.2) g/dL Albumin 3.1 L D (3.4-5.0) g/dL Beta-Hydroxybutyric Acd (0.00-0.39) mmol/L Urine Protein (Neg-Trace) mg/dL Urine Glucose (UA) (Negative) mg/dL Urine Ketones (Negative) mg/dL Urine Occult Blood (Negative) 08/14/18 08/14/18 08/14/18 Range/Units 15:54 15:55 16:50 WBC (4.0-11.0) th/mm3 RBC (4.50-5.90) mil/mm3 Hct (39.0-51.0) % MCV (80.0-100.0) fL MCHC (32.0-36.0) % Neut % (Auto) (16.0-70.0) % Lymph % (Auto) (9.0-44.0) % [place] % (Auto) (0.0-8.0) % Neut # (Auto) (1.8-7.7) th/mm3 Lymph # (Auto) (1.0-4.8) th/mm3 [place] # (Auto) (0.0-0.9) th/mm3 ABG pH (7.380-7.420) ABG pCO2 (38-42) mmHg ABG pO2 (61-120) mmHg ABG HCO3 (22-26) mmol/L ABG Base Excess (-2-2) mmol/L Sodium (136-145) meq/L Potassium (3.5-5.1) meq/L Chloride (98-107) meq/L Carbon Dioxide (21.0-32.0) meq/L Anion Gap (5-15) meq/L BUN (7-18) mg/dL Creatinine (0.60-1.30) mg/dL Estimated GFR (>89) mL/min POC Glucose Greater than 600 H* Greater than 600 H* (68-110) mg/dl Random Glucose 658 H* (74-106) mg/dL Lactic Acid (0.4-2.0) mmol/L Calcium (8.5-10.1) mg/dL Phosphorus (2.5-4.9) mg/dL AST (15-37) U/L Total Protein (6.4-8.2) g/dL Albumin (3.4-5.0) g/dL Beta-Hydroxybutyric Acd (0.00-0.39) mmol/L Urine Protein (Neg-Trace) mg/dL Urine Glucose (UA) (Negative) mg/dL Urine Ketones (Negative) mg/dL Urine Occult Blood (Negative) 08/14/18 08/14/18 08/14/18 Range/Units 16:55 17:51 18:55 WBC (4.0-11.0) th/mm3 RBC (4.50-5.90) mil/mm3 Hct (39.0-51.0) % MCV (80.0-100.0) fL MCHC (32.0-36.0) % Neut % (Auto) (16.0-70.0) % Lymph % (Auto) (9.0-44.0) % [place] % (Auto) (0.0-8.0) % Neut # (Auto) (1.8-7.7) th/mm3 Lymph # (Auto) (1.0-4.8) th/mm3 [place] # (Auto) (0.0-0.9) th/mm3 ABG pH (7.380-7.420) ABG pCO2 (38-42) mmHg ABG pO2 (61-120) mmHg ABG HCO3 (22-26) mmol/L ABG Base Excess (-2-2) mmol/L Sodium (136-145) meq/L Potassium (3.5-5.1) meq/L Chloride 111 H (98-107) meq/L Carbon Dioxide 10.6 L (21.0-32.0) meq/L Anion Gap 19 H (5-15) meq/L BUN 42 H (7-18) mg/dL Creatinine 2.37 H (0.60-1.30) mg/dL Estimated GFR 28 L (>89) mL/min POC Glucose 396 H 334 H (68-110) mg/dl Random Glucose 539 H* D (74-106) mg/dL Lactic Acid (0.4-2.0) mmol/L Calcium 8.4 L (8.5-10.1) mg/dL Phosphorus 1.3 L (2.5-4.9) mg/dL AST (15-37) U/L Total Protein (6.4-8.2) g/dL Albumin (3.4-5.0) g/dL Beta-Hydroxybutyric Acd (0.00-0.39) mmol/L Urine Protein (Neg-Trace) mg/dL Urine Glucose (UA) (Negative) mg/dL Urine Ketones (Negative) mg/dL Urine Occult Blood (Negative) 08/14/18 08/14/18 08/14/18 Range/Units 19:55 21:04 22:17 WBC (4.0-11.0) th/mm3 RBC (4.50-5.90) mil/mm3 Hct (39.0-51.0) % MCV (80.0-100.0) fL MCHC (32.0-36.0) % Neut % (Auto) (16.0-70.0) % Lymph % (Auto) (9.0-44.0) % [place] % (Auto) (0.0-8.0) % Neut # (Auto) (1.8-7.7) th/mm3 Lymph # (Auto) (1.0-4.8) th/mm3 [place] # (Auto) (0.0-0.9) th/mm3 ABG pH (7.380-7.420) ABG pCO2 (38-42) mmHg ABG pO2 (61-120) mmHg ABG HCO3 (22-26) mmol/L ABG Base Excess (-2-2) mmol/L Sodium (136-145) meq/L Potassium (3.5-5.1) meq/L Chloride (98-107) meq/L Carbon Dioxide (21.0-32.0) meq/L Anion Gap (5-15) meq/L BUN (7-18) mg/dL Creatinine (0.60-1.30) mg/dL Estimated GFR (>89) mL/min POC Glucose 299 H 249 H 212 H (68-110) mg/dl Random Glucose (74-106) mg/dL Lactic Acid (0.4-2.0) mmol/L Calcium (8.5-10.1) mg/dL Phosphorus (2.5-4.9) mg/dL AST (15-37) U/L Total Protein (6.4-8.2) g/dL Albumin (3.4-5.0) g/dL Beta-Hydroxybutyric Acd (0.00-0.39) mmol/L Urine Protein (Neg-Trace) mg/dL Urine Glucose (UA) (Negative) mg/dL Urine Ketones (Negative) mg/dL Urine Occult Blood (Negative) 08/14/18 08/14/18 08/15/18 Range/Units 22:55 23:56 00:00 WBC (4.0-11.0) th/mm3 RBC (4.50-5.90) mil/mm3 Hct (39.0-51.0) % MCV (80.0-100.0) fL MCHC (32.0-36.0) % Neut % (Auto) (16.0-70.0) % Lymph % (Auto) (9.0-44.0) % [place] % (Auto) (0.0-8.0) % Neut # (Auto) (1.8-7.7) th/mm3 Lymph # (Auto) (1.0-4.8) th/mm3 [place] # (Auto) (0.0-0.9) th/mm3 ABG pH (7.380-7.420) ABG pCO2 (38-42) mmHg ABG pO2 (61-120) mmHg ABG HCO3 (22-26) mmol/L ABG Base Excess (-2-2) mmol/L Sodium 151 H D (136-145) meq/L Potassium (3.5-5.1) meq/L Chloride 122 H D (98-107) meq/L Carbon Dioxide (21.0-32.0) meq/L Anion Gap (5-15) meq/L BUN 34 H (7-18) mg/dL Creatinine 1.89 H (0.60-1.30) mg/dL Estimated GFR 37 L (>89) mL/min POC Glucose 173 H 140 H (68-110) mg/dl Random Glucose 146 H D (74-106) mg/dL Lactic Acid (0.4-2.0) mmol/L Calcium (8.5-10.1) mg/dL Phosphorus 0.6 L (2.5-4.9) mg/dL AST (15-37) U/L Total Protein (6.4-8.2) g/dL Albumin (3.4-5.0) g/dL Beta-Hydroxybutyric Acd 0.61 H D (0.00-0.39) mmol/L Urine Protein (Neg-Trace) mg/dL Urine Glucose (UA) (Negative) mg/dL Urine Ketones (Negative) mg/dL Urine Occult Blood (Negative) 08/15/18 08/15/18 08/15/18 Range/Units 00:32 01:04 03:30 WBC (4.0-11.0) th/mm3 RBC (4.50-5.90) mil/mm3 Hct (39.0-51.0) % MCV (80.0-100.0) fL MCHC (32.0-36.0) % Neut % (Auto) (16.0-70.0) % Lymph % (Auto) (9.0-44.0) % [place] % (Auto) (0.0-8.0) % Neut # (Auto) (1.8-7.7) th/mm3 Lymph # (Auto) (1.0-4.8) th/mm3 [place] # (Auto) (0.0-0.9) th/mm3 ABG pH (7.380-7.420) ABG pCO2 (38-42) mmHg ABG pO2 (61-120) mmHg ABG HCO3 (22-26) mmol/L ABG Base Excess (-2-2) mmol/L Sodium (136-145) meq/L Potassium (3.5-5.1) meq/L Chloride (98-107) meq/L Carbon Dioxide (21.0-32.0) meq/L Anion Gap (5-15) meq/L BUN (7-18) mg/dL Creatinine (0.60-1.30) mg/dL Estimated GFR (>89) mL/min POC Glucose 114 H 133 H 338 H (68-110) mg/dl Random Glucose (74-106) mg/dL Lactic Acid (0.4-2.0) mmol/L Calcium (8.5-10.1) mg/dL Phosphorus (2.5-4.9) mg/dL AST (15-37) U/L Total Protein (6.4-8.2) g/dL Albumin (3.4-5.0) g/dL Beta-Hydroxybutyric Acd (0.00-0.39) mmol/L Urine Protein (Neg-Trace) mg/dL Urine Glucose (UA) (Negative) mg/dL Urine Ketones (Negative) mg/dL Urine Occult Blood (Negative) 08/15/18 08/15/18 Range/Units 07:37 09:15 WBC 16.8 H (4.0-11.0) th/mm3 RBC 4.09 L (4.50-5.90) mil/mm3 Hct 37.5 L (39.0-51.0) % MCV (80.0-100.0) fL MCHC (32.0-36.0) % Neut % (Auto) 89.1 H (16.0-70.0) % Lymph % (Auto) 3.5 L (9.0-44.0) % [place] % (Auto) (0.0-8.0) % Neut # (Auto) 14.9 H (1.8-7.7) th/mm3 Lymph # (Auto) 0.6 L (1.0-4.8) th/mm3 [place] # (Auto) 1.2 H (0.0-0.9) th/mm3 ABG pH (7.380-7.420) ABG pCO2 (38-42) mmHg ABG pO2 (61-120) mmHg ABG HCO3 (22-26) mmol/L ABG Base Excess (-2-2) mmol/L Sodium (136-145) meq/L Potassium (3.5-5.1) meq/L Chloride (98-107) meq/L Carbon Dioxide (21.0-32.0) meq/L Anion Gap (5-15) meq/L BUN (7-18) mg/dL Creatinine (0.60-1.30) mg/dL Estimated GFR (>89) mL/min POC Glucose 342 H (68-110) mg/dl Random Glucose (74-106) mg/dL Lactic Acid (0.4-2.0) mmol/L Calcium (8.5-10.1) mg/dL Phosphorus (2.5-4.9) mg/dL AST (15-37) U/L Total Protein (6.4-8.2) g/dL Albumin (3.4-5.0) g/dL Beta-Hydroxybutyric Acd (0.00-0.39) mmol/L Urine Protein (Neg-Trace) mg/dL Urine Glucose (UA) (Negative) mg/dL Urine Ketones (Negative) mg/dL Urine Occult Blood (Negative) Short CBC 08/14/18 08/15/18 Range/Units 10:40 09:15 WBC 31.0 H 16.8 H (4.0-11.0) th/mm3 Hgb 15.2 13.3 (13.0-17.0) gm/dL Hct 50.0 37.5 L (39.0-51.0) % Plt Count 336 163 D (150-450) th/mm3 BMP 08/14/18 08/14/18 08/14/18 10:35 15:09 16:55 Sodium 127 L 135 L 141 Potassium 6.6 H* 5.4 H D 4.1 D Chloride 90 L 105 D 111 H Carbon Dioxide 3.4 L 6.7 L 10.6 L BUN 41 H 47 H 42 H Creatinine 2.60 H 2.45 H 2.37 H Calcium 8.2 L 8.5 8.4 L 08/15/18 00:00 Sodium 151 H D Potassium 3.8 Chloride 122 H D Carbon Dioxide 22.2 D BUN 34 H Creatinine 1.89 H Calcium 8.7 Cardiac Enzymes 08/14/18 Range/Units 13:55 Troponin I 0.05 (0.02-0.05) ng/mL Liver Function 08/14/18 08/14/18 Range/Units 10:35 15:09 Total Bilirubin 0.5 0.6 (0.2-1.0) mg/dL AST 30 39 H (15-37) U/L ALT 66 58 (12-78) U/L Alkaline Phosphatase 91 72 (45-117) U/L Albumin 3.9 3.1 L D (3.4-5.0) g/dL Urine 08/14/18 Range/Units 12:20 Urine Color Yellow (Yellw/Straw) Urine Clarity Clear (Clear) Urine pH 5.0 (5.0-8.5) Ur Specific [place] Greater/equal 1.030 (1.002-1.035) Urine Protein 100 H (Neg-Trace) mg/dL Urine Glucose (UA) 1000 or greater H (Negative) mg/dL - Imaging Impressions Chest X-Ray 08/14/18 11:05 CONCLUSION: No acute cardiopulmonary process. Assessment and Plan - Assessment (1) DKA, type 1 Code(s): E10.10 - Type 1 diabetes mellitus with ketoacidosis without coma Status: Acute Qualifiers: Diabetes mellitus complication detail: without coma Qualified Code(s): E10.10 - Type 1 diabetes mellitus with ketoacidosis without coma Plan: Recovering from DKA as lytes and lactic acid cont to improve. 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 (2) Acute kidney failure Code(s): N17.9 - Acute kidney failure, unspecified Status: Acute Qualifiers: Acute renal failure type: with other specified pathological lesion Qualified Code(s): N17.8 - Other acute kidney failure Plan: Renal function somewat improved. Will con t o hydrate and consider renal consult if LUISA doesn't cont to improve. (3) Metabolic acidemia Code(s): E87.2 - Acidosis Status: Acute Plan: Cont to monitor and adjust fluids accordingly (4) Diabetes mellitus type 2, insulin dependent Code(s): E11.9 - Type 2 diabetes mellitus without complications; Z79.4 - meterman (current) use of insulin Status: Chronic Plan: Cont plan per central office frame wirer - Assessment and Plan Will plan to assume care per central office frame wirer tomorrow and await transfer to medical floor. Discussed Condition With: Nurse and patient
[2018-08-15] MEDS: Multivitamin Inj 10 ML, Thiamine Inj 100 MG, Folic Acid Inj 1 MG in Sodium Chlor 0.9% I... IV.SIG SCH (16:02)
[2018-08-15 17:50] LABS: ABG Base Excess -13.5 mmol/L (-2-2); ABG PCO2 24 mmHg (38-42); ABG PO2 93 mmHG (61-120)
[2018-08-15 18:29] LABS: Beta Hydroxybutyric Acid 2.99 mmol/L (0.00-0.39); Calcium 8.7 mg/dL (8.5-10.1); Carbon Dioxide 21.4 meq/L (21.0-32.0); Phosphorus 2.1 mg/dL (2.5-4.9); Potassium 4.1 meq/L (3.5-5.1)
--- NOTE | 2018-08-15 19:41 | CT ---
EXAM DATE: 08/15/2018 7:30 PM EST AGE/SEX: 58 years / Male INDICATIONS: Abdomen pain with sepsis. CLINICAL DATA: This is the patient's initial encounter. Patient reports that signs and symptoms have been present for 1 day and indicates a pain score of 0/10. MEDICAL/SURGICAL HISTORY: Diabetes mellitus type II. Inguinal hernia repair. RADIATION DOSE: 6.97 CTDI (mGy) COMPARISON: No prior exams available for comparison. TECHNIQUE: Multiple contiguous axial images were obtained through the abdomen. Images were obtained using multiple row detector helical technique. Using automated exposure control and adjustment of the mA and/or kV according to patient size, radiation dose was kept as low as reasonably achievable to o btain optimal diagnostic quality images. DICOM format image data is available electronically for rev iew and comparison. FINDINGS: LOWER LUNGS: Trace bilateral pleural effusions with associated airspace disease at the lung bases. LIVER: Diffusely homogeneous density without intrahepatic ductal dilatation or volume loss. SPLEEN: Homogeneous density without enlargement. PANCREAS: Grossly unremarkable. KIDNEYS: 3 mm calyceal calculus in the superior pole the right kidney. 1.8 cm cyst in the inferior p ole the left kidney. Kidneys otherwise symmetrical in size without evidence for hydronephrosis or sig nificant contour deforming abnormality. ADRENAL GLANDS: Unremarkable. AORTA: Sparkle-aneurysmal. BOWEL/MESENTERY: The bowel loops are grossly unremarkable. The cecum and sigmoid colon have a gil l configuration. No significant free fluid or drainable fluid collections. No free air. Appendix is n ot definitively visualized. No significant inflammatory change in the right lower quadrant. ABDOMINAL WALL: Intact. Surgical clips in bilateral inguinal canals consistent with prior inguinal h ernia repair. BLADDER: Contours are smooth. REPRODUCTIVE: Grossly unremarkable. BONY STRUCTURES: Degenerative spondylosis of the lumbar spine. Probable Schmorl's node in the superi or endplate of L4 vertebral body. CONCLUSION: 1. 3 mm nonobstructing calyceal calculus in the superior pole of the right kidney. 2. Trace bilateral pleural effusions with presumed compressive atelectasis at the lung bases. 3. Otherwise, no acute unenhanced CT abnormality. Electronically signed by: Jose Alberto Arias MD Board Certified Radiologist 08/15/2018 7:39 PM SHAUNA Moreno
[2018-08-15] MEDS: Insulin Detemir Inj 1,000 UNIT/10 ML Vial SQ SCH (21:22)
--- NOTE | 2018-08-16 01:17 | ECG ---
Date Performed: 08/14/2018 Time Performed: 11:17:41 PTAGE: 58 years EKG: Sinus rhythm INTRAVENTRICULAR CONDUCTION DELAY ABNORMAL ECG PREVIOUS TRACING : 03/12/2015 16.45 Compared to previous tracing, now with IVCD DOCTOR: Husam Tadeo Interpretating Date/Time 08/16/2018 01:16:13
[2018-08-16] MEDS: KCL 20 mEq/D5W/NaCl 0.45% Inj 1,000 ML IV.CONT SCH ×5 (03:20→23:21)
[2018-08-16] MEDS: Sod Chloride 0.9% Inj 1,000 ML IV.CONT SCH ×7 (03:22→21:45)
[2018-08-16] MEDS: Chlorhexidine Gluconate 2% 1 Pack (2 Cloths) TOPICAL SCH (05:18)
[2018-08-16] MEDS: Piperacil/Tazo 3.375 GM Premix 3.375 GM/50 ML PIGGYBACK IV.SIG SCH ×3 (05:19→21:49)
[2018-08-16] MEDS ORDERED: Influenza (Quadrivalent) Vaccine 0.5 ML Syringe IM ONE ×3 (05:45→09:00)
[2018-08-16] MEDS: Insulin NovoLOG Aspart Correctional Sugar Inj SQ SCH ×4 (09:10→20:56)
[2018-08-16] MEDS: Sodium Chloride 0.9% 2 ML Flush BID IV.FLUSH SCH ×2 (09:11→21:50)
--- NOTE | 2018-08-16 09:22 | P.PNFP ---
Subjective Interval history: Seen this am, he voices he is feeling "ok" Wants to take shower. Complaints of sore throat. Results - Labs Result diagrams: 08/15/18 09:15 08/15/18 17:08 Abnormal lab results 08/14/18 08/15/18 08/15/18 Range/Units 17:40 09:15 12:17 WBC 16.8 H (4.0-11.0) th/mm3 RBC 4.09 L (4.50-5.90) mil/mm3 Hct 37.5 L (39.0-51.0) % Neut % (Auto) 89.1 H (16.0-70.0) % Lymph % (Auto) 3.5 L (9.0-44.0) % Neut # (Auto) 14.9 H (1.8-7.7) th/mm3 Lymph # (Auto) 0.6 L (1.0-4.8) th/mm3 [place] # (Auto) 1.2 H (0.0-0.9) th/mm3 ABG pH 7.31 L (7.380-7.420) ABG pCO2 24 L* (38-42) mmHg ABG HCO3 12 L* (22-26) mmol/L ABG Base Excess -13.5 L (-2-2) mmol/L Chloride (98-107) meq/L BUN (7-18) mg/dL Estimated GFR (>89) mL/min POC Glucose 291 H (68-110) mg/dl Random Glucose (74-106) mg/dL Phosphorus (2.5-4.9) mg/dL Beta-Hydroxybutyric Acd (0.00-0.39) mmol/L 08/15/18 08/15/18 08/15/18 Range/Units 17:05 17:08 20:14 WBC (4.0-11.0) th/mm3 RBC (4.50-5.90) mil/mm3 Hct (39.0-51.0) % Neut % (Auto) (16.0-70.0) % Lymph % (Auto) (9.0-44.0) % Neut # (Auto) (1.8-7.7) th/mm3 Lymph # (Auto) (1.0-4.8) th/mm3 [place] # (Auto) (0.0-0.9) th/mm3 ABG pH (7.380-7.420) ABG pCO2 (38-42) mmHg ABG HCO3 (22-26) mmol/L ABG Base Excess (-2-2) mmol/L Chloride 113 H D (98-107) meq/L BUN 20 H (7-18) mg/dL Estimated GFR 64 L (>89) mL/min POC Glucose 179 H 240 H (68-110) mg/dl Random Glucose 201 H (74-106) mg/dL Phosphorus 2.1 L D (2.5-4.9) mg/dL Beta-Hydroxybutyric Acd 2.99 H D (0.00-0.39) mmol/L 08/16/18 Range/Units 08:40 WBC (4.0-11.0) th/mm3 RBC (4.50-5.90) mil/mm3 Hct (39.0-51.0) % Neut % (Auto) (16.0-70.0) % Lymph % (Auto) (9.0-44.0) % Neut # (Auto) (1.8-7.7) th/mm3 Lymph # (Auto) (1.0-4.8) th/mm3 [place] # (Auto) (0.0-0.9) th/mm3 ABG pH (7.380-7.420) ABG pCO2 (38-42) mmHg ABG HCO3 (22-26) mmol/L ABG Base Excess (-2-2) mmol/L Chloride (98-107) meq/L BUN (7-18) mg/dL Estimated GFR (>89) mL/min POC Glucose 199 H (68-110) mg/dl Random Glucose (74-106) mg/dL Phosphorus (2.5-4.9) mg/dL Beta-Hydroxybutyric Acd (0.00-0.39) mmol/L Short CBC 08/15/18 Range/Units 09:15 WBC 16.8 H (4.0-11.0) th/mm3 Hgb 13.3 (13.0-17.0) gm/dL Hct 37.5 L (39.0-51.0) % Plt Count 163 D (150-450) th/mm3 BMP 08/15/18 17:08 Sodium 144 Potassium 4.1 Chloride 113 H D Carbon Dioxide 21.4 BUN 20 H Creatinine 1.16 Calcium 8.7 - Imaging Impressions Abdomen/Pelvis CT 08/15/18 00:00 CONCLUSION: 1. 3 mm nonobstructing calyceal calculus in the superior pole of the right kidney. 2. Trace bilateral pleural effusions with presumed compressive atelectasis at the lung bases. 3. Otherwise, no acute unenhanced CT abnormality. Physical Exam Vital signs: Vital Signs 08/15/18 09:30 08/15/18 10:00 08/15/18 10:30 Temperature Pulse Rate 110 H 114 H 108 H Respiratory Rate 30 H 20 22 Blood Pressure 134/66 125/63 129/66 Pulse Oximetry 98 96 97 08/15/18 11:00 08/15/18 12:00 08/15/18 12:20 Temperature 98.7 F 98.8 F Pulse Rate 107 H 104 H 108 H Respiratory Rate 20 20 Blood Pressure 129/72 126/70 Pulse Oximetry 97 98 08/15/18 16:00 08/15/18 16:20 08/15/18 20:00 Temperature 97.6 F 98.4 F Pulse Rate 97 H 100 H 98 H Respiratory Rate 18 Blood Pressure 147/81 H 152/87 H Pulse Oximetry 18 L 94 L 08/16/18 00:00 08/16/18 04:00 Temperature 97.5 F L Pulse Rate 104 H 96 H Respiratory Rate 14 16 Blood Pressure 155/85 H Pulse Oximetry 96 Intake & Output 08/15/18 08/16/18 08/16/18 18:59 06:59 18:59 Intake Total 3310 / 3310 1821.2 / 1821.2 Output Total 800 / 800 800 / 800 Balance 2510 / 2510 1021.2 / 1021.2 Weight 76 kg Intake: IV 3050 / 3050 1611.2 / 1611.2 D5W/1/2NS + KCL 20 mEq Inj 1999 / 1999 1000 / 1000 000 ML @ 150 mls/hr IV.CONT . Q6H40M [facility] Rx#:[id number] NS Inj 1,000 ML @ 250 mls/hr IV 1000 / 1000 .CONT .Q4H [facility] Rx#:[id number] MVI-12 Inj 10 ML Thiamine Inj 511.2 / 511.2 100 MG Folvite Inj 1 MG In NS Inj 500 ML @ 125 mls/hr IV.SIG Q24H [facility] Rx#:[id number] Zosyn 3.375 GM Premix 3.375 gm 50 / 50 100 / 100 In 50 ml @ 100 mls/hr IV.SIG Q8H [facility] Rx#:[id number] Oral 260 / 260 210 / 210 Output: Urine 800 / 800 800 / 800 Other: # Bowel Movements 0 0 - Constitutional no acute distress - Routine HEENT Exam Eye: Present: PERRL ENT: Present: mucous membranes moist - Routine Respiratory Exam Present: CTA bilaterally - Routine Cardiovascular Exam Present: S1, S2 - Routine Abdominal Exam Present: soft, normoactive bowel sounds - Routine Skin Exam Present: dry, warm - Routine Psychiatric Exam Present: cooperative - Urinary Catheter Management Indwelling Urethral Catheter Cath placed during this visit: yes Reason for continuing: Hourly intake/output Insertion date: 08/14/18 Insertion time: 12:20 Assessment and Plan - Assessment (1) DKA, type 1 Code(s): E10.10 - Type 1 diabetes mellitus with ketoacidosis without coma Status: Acute Plan: Recovering from DKA as lytes and lactic acid cont to improve. (2) Acute kidney failure Code(s): N17.9 - Acute kidney failure, unspecified Status: Acute Plan: Renal function cont to improved. Will con t o hydrate and consider renal consult if LUISA doesn't cont to improve. (3) Metabolic acidemia Code(s): E87.2 - Acidosis Status: Acute Plan: Cont to monitor and adjust fluids accordingly (4) Diabetes mellitus type 2, insulin dependent Code(s): E11.9 - Type 2 diabetes mellitus without complications; Z79.4 - moth exterminator (current) use of insulin Status: Chronic Plan: Cont ildefonso - Assessment and Plan 08/16/18- Transferred to medical floor last night. Bs still running high, insulin adjusted yesterday 30u of Levemir at HS, and 5u of NovoLog with meals. He would like to take shower. He voices he has a sore throat from vomiting. Throat is red, will order lozenges. He is on Zosyn, Blood cultures negative thus far. (1) DKA, type 1 Qualifiers: Diabetes mellitus complication detail: without coma Qualified Code(s): E10.10 - Type 1 diabetes mellitus with ketoacidosis without coma (2) Acute kidney failure Qualifiers: Acute renal failure type: with other specified pathological lesion Qualified Code(s): N17.8 - Other acute kidney failure
[2018-08-16] MEDS: Benzocaine/Menthol 15 MG/3.6 MG SF Lozenge BUCCAL PRN (10:49)
[2018-08-16] MEDS: Multivitamin Inj 10 ML, Thiamine Inj 100 MG, Folic Acid Inj 1 MG in Sodium Chlor 0.9% I... IV.SIG SCH (16:26)
[2018-08-16] MEDS: Insulin Detemir Inj 1,000 UNIT/10 ML Vial SQ SCH (20:55)
[2018-08-16] MEDS: Zolpidem Tartrate 5 MG Tablet PO PRN (20:56)
[2018-08-17] MEDS: Sod Chloride 0.9% Inj 1,000 ML IV.CONT SCH ×4 (00:15→15:13)
[2018-08-17] MEDS: Chlorhexidine Gluconate 2% 1 Pack (2 Cloths) TOPICAL SCH (04:52)
[2018-08-17] MEDS: Piperacil/Tazo 3.375 GM Premix 3.375 GM/50 ML PIGGYBACK IV.SIG SCH ×2 (05:44→15:13)
[2018-08-17] MEDS: KCL 20 mEq/D5W/NaCl 0.45% Inj 1,000 ML IV.CONT SCH ×2 (06:47→14:16)
[2018-08-17 07:33] LABS: Hemoglobin 13.9 gm/dL (13.0-17.0); Mean Corpuscular HGB Conc 35.6 % (32.0-36.0); Mean Corpuscular Hemoglobin 32.9 pg (27.0-34.0); Mean Corpuscular Volume 92.3 fL (80.0-100.0); Mean Platelet Volume 8.6 fL (7.0-11.0); Platelet Count 112 th/mm3 (150-450); Red Blood Count 4.22 mil/mm3 (4.50-5.90); Red Cell Distribution Width 13.5 % (11.6-17.2)
[2018-08-17 08:04] LABS: Anion Gap 5 meq/L (5-15); Blood Urea Nitrogen 9 mg/dL (7-18); Calcium 8.8 mg/dL (8.5-10.1); Carbon Dioxide 32.2 meq/L (21.0-32.0); Chloride 105 meq/L (98-107); Glomerular Filtration Rate Greater Than 89 mL/min (>89); Glucose,Random 159 mg/dL (74-106); Potassium 3.7 meq/L (3.5-5.1); Sodium 142 meq/L (136-145)
[2018-08-17] MEDS: Insulin NovoLOG Aspart Correctional Sugar Inj SQ SCH ×4 (09:05→21:22)
[2018-08-17] MEDS: Benzocaine/Menthol 15 MG/3.6 MG SF Lozenge BUCCAL PRN (09:07)
[2018-08-17] MEDS: Sodium Chloride 0.9% 2 ML Flush BID IV.FLUSH SCH ×2 (12:49→21:27)
--- NOTE | 2018-08-17 14:45 | P.PNIM ---
Subjective Interval history: Patient reports he is feeling better but he has been unable to eat. He has a sore throat. No nausea or vomiting. Blood glucose improving. Diarrhea is resolving. Physical Exam Vital signs: Last Vital Signs Temp 98.2 F 08/17/18 12:00 Pulse 90 08/17/18 12:00 Resp 18 08/17/18 12:00 BP 140/87 08/17/18 12:00 Pulse Ox 96 08/17/18 12:00 Intake & Output 08/15/18 08/16/18 08/17/18 08/18/18 06:59 06:59 06:59 06:59 Intake Total 8229.5 / 8229.5 5131.2 / 5131.2 5541.2 / 5541.2 1000 / 1000 Output Total 5050 / 5050 1600 / 1600 2625 / 2625 Balance 3179.5 / 3179.5 3531.2 / 3531.2 2916.2 / 2916.2 1000 / 1000 Weight 76 kg 76 kg 76 kg Narrative: GENERAL: This is a well-nourished, well-developed patient, in no apparent distress. CARDIOVASCULAR: Normal rate and regular rhythm without murmurs, gallops, or rubs. RESPIRATORY: Good respiratory efforts. Breath sounds equal and clear to auscultation bilaterally. GASTROINTESTINAL: Abdomen soft, non-tender, non-distended. Normal active bowel sounds MUSCULOSKELETAL: Extremities without cyanosis, or edema. NEURO: Alert & Oriented x4 to person, place, time, situation. Moves all ext x4 PSYCH: Appropriate mood and affect. Urinary Catheter Management Indwelling Urethral Catheter: Cath placed during this visit: yes Urethral indwelling: No Insertion date: 08/14/18 Insertion time: 12:20 Results Labs CBC & Chem 7: 08/17/18 06:35 08/17/18 06:35 Labs: Microbiology 08/14/18 12:25 Blood - Peripheral Aerobic Blood Culture - Preliminary No growth in 3 days 08/14/18 12:25 Blood - Peripheral Anaerobic Blood Culture - Preliminary No growth in 3 days 08/14/18 12:25 Blood - Peripheral Aerobic Blood Culture - Preliminary No growth in 3 days 08/14/18 12:25 Blood - Peripheral Anaerobic Blood Culture - Preliminary No growth in 3 days Assessment and Plan (1) DKA, type 1: Code(s): E10.10 - Type 1 diabetes mellitus with ketoacidosis without coma Status: Acute (2) Acute kidney failure: Code(s): N17.9 - Acute kidney failure, unspecified Status: Acute (3) Metabolic acidemia: Code(s): E87.2 - Acidosis Status: Acute (4) Diabetes mellitus type 2, insulin dependent: Code(s): E11.9 - Type 2 diabetes mellitus without complications; Z79.4 - buttermaker ( current) use of insulin Status: Chronic Plan 58-year-old male admitted with with DKA, acute renal failure, and severe sepsis. DKA: - Status post ICU course. Recovering. - Blood glucose improving. Increase Levemir to 35 units nightly. Continue NovoLog 5 units before meals. Acute metabolic encephalopathy History of alcohol abuse -Encephalopathy and blurred vision secondary to severe hyperglycemia, now resolved -Supplement multivitamin thiamine -Closely for alcohol withdrawal Nausea vomiting diarrhea -ADA diet, IV famotidine -CT abdomen pelvis unremarkable. Acute kidney failure -Renal functions recovered. Discontinue IV fluid. Encourage oral hydration. Severe sepsis Severe hypothermia -This could have been secondary to a viral gastroenteritis leading to severe DKA. -Patient has been on broad-spectrum IV antibiotics. All cultures are negative. -Discontinue antibiotics today. PROPH: -Bilateral lower extremity SCDs. Lovenox/famotidine Overall impression: The patient is improving from severe episode of DKA. No clear source of a bacterial infection. Antibiotics discontinued. If he continues to improve tomorrow, he may be discharged home. Progress Note: Quality VTE Deep Vein Thrombosis/Pulmonary Embolism Present on Admission: No _ (1) Acute kidney failure Qualifiers: Acute renal failure type: with other specified pathological lesion Qualified Code(s): N17.8 - Other acute kidney failure (2) DKA, type 1 Qualifiers: Diabetes mellitus complication detail: without coma Qualified Code(s): E10.10 - Type 1 diabetes mellitus with ketoacidosis without coma
[2018-08-17] MEDS ORDERED: Insulin Detemir Inj 1,000 UNIT/10 ML Vial SQ SCH (21:00)
[2018-08-17] MEDS: Zolpidem Tartrate 5 MG Tablet PO PRN (21:15)
[2018-08-18] MEDS: Chlorhexidine Gluconate 2% 1 Pack (2 Cloths) TOPICAL SCH (06:50)
[2018-08-18 07:11] LABS: Hemoglobin 15.1 gm/dL (13.0-17.0); Mean Corpuscular Hemoglobin 32.8 pg (27.0-34.0); Mean Corpuscular Volume 91.2 fL (80.0-100.0); Mean Platelet Volume 8.5 fL (7.0-11.0); Platelet Count 113 th/mm3 (150-450); Red Cell Distribution Width 13.3 % (11.6-17.2); White Blood Count 6.5 th/mm3 (4.0-11.0)
[2018-08-18 07:35] LABS: Anion Gap 8 meq/L (5-15); Blood Urea Nitrogen 11 mg/dL (7-18); Carbon Dioxide 28.4 meq/L (21.0-32.0); Chloride 104 meq/L (98-107); Glomerular Filtration Rate Greater Than 89 mL/min (>89); Glucose,Random 63 mg/dL (74-106); Potassium 3.3 meq/L (3.5-5.1); Sodium 140 meq/L (136-145)
[2018-08-18] MEDS: Insulin NovoLOG Aspart Correctional Sugar Inj SQ SCH ×4 (08:35→22:30)
[2018-08-18] MEDS ORDERED: Potassium Chloride 25 MEQ Effervescent Tablet PO ONE (09:57)
--- NOTE | 2018-08-18 10:10 | P.PN ---
Subjective Interval history: Follow up for DKA: Patient seen and examined, blood sugar 65 this morning, took apple juice and blood sugar went up to 128. Denies any nausea, no vomiting, minimal cough with clear sputum. No chest pain, shortness of breath. Complains of painful swallowing, indicates throat is very sore and lozenges are not working. Has not been eating very much. No fever Physical Exam Vital signs: Vital Signs 08/17/18 12:00 08/17/18 16:00 08/17/18 20:00 Temperature 98.2 F 98.6 F 97.7 F Pulse Rate 82 94 H 94 H Respiratory Rate 18 18 17 Blood Pressure 140/87 144/91 H 146/82 H Pulse Oximetry 96 96 93 L 08/17/18 21:27 08/18/18 00:00 08/18/18 04:00 Temperature 98.3 F 97.6 F Pulse Rate 98 H 96 H Respiratory Rate 18 17 Blood Pressure 138/88 143/90 H Pulse Oximetry 96 95 94 L 08/18/18 08:00 Temperature 99.1 F Pulse Rate 104 H Respiratory Rate 16 Blood Pressure 136/74 Pulse Oximetry 94 L Intake & Output 08/17/18 08/18/18 08/18/18 18:59 06:59 18:59 Intake Total 1979 / 1979 880 / 880 Output Total 600 / 600 Balance 1380 / 1380 880 / 880 Weight 80.9 kg Intake: IV 1500 / 1500 D5W/1/2NS + KCL 20 mEq Inj 1, 1500 / 1500 000 ML @ 150 mls/hr IV.CONT . Q6H40M COUNTS INCLUDE 234 BEDS AT [facility] Rx#:[id number] Oral 480 / 480 880 / 880 Output: Urine 600 / 600 Other: # Voids 4 Date of Last Bowel Movement 08/18/18 08/18/18 # Bowel Movements 2 2 Narrative: GENERAL: This is a well-nourished, well-developed patient, in no apparent distress. CARDIOVASCULAR: Normal rate and regular rhythm without murmurs, gallops, or rubs. HEENT: Head normocephalic, atraumatic, pupils equal and reactive, extraocular eye movements intact. Oropharynx noted with thrush, erythematous. RESPIRATORY: Good respiratory efforts. Breath sounds equal and clear to auscultation bilaterally. GASTROINTESTINAL: Abdomen soft, non-tender, non-distended. Normal active bowel sounds MUSCULOSKELETAL: Extremities without cyanosis, or edema. NEURO: Alert & Oriented x4 to person, place, time, situation. Moves all ext x4 PSYCH: Appropriate mood and affect. - Urinary Catheter Management Indwelling Urethral Catheter Cath placed during this visit: yes Urethral indwelling: No Reason for continuing: Hourly intake/output Insertion date: 08/14/18 Insertion time: 12:20 Results - Labs CBC & Chem 7: 08/18/18 06:41 08/18/18 11:10 Laboratory Results - last 24 hr 08/17/18 08/17/18 08/17/18 12:09 17:56 21:16 WBC RBC Hgb Hct MCV MCH MCHC RDW Plt Count MPV Sodium Potassium Chloride Carbon Dioxide Anion Gap BUN Creatinine Estimated GFR POC Glucose 190 H 258 H 185 H Random Glucose Calcium 08/18/18 08/18/18 08/18/18 06:41 06:41 07:30 WBC 6.5 RBC 4.60 Hgb 15.1 Hct 42.0 MCV 91.2 MCH 32.8 MCHC 36.0 RDW 13.3 Plt Count 113 L MPV 8.5 Sodium 140 Potassium 3.3 L Chloride 104 Carbon Dioxide 28.4 Anion Gap 8 BUN 11 Creatinine 0.67 Estimated GFR Greater than 89 POC Glucose 66 L Random Glucose 63 L Calcium 9.0 08/18/18 08/18/18 07:32 08:08 WBC RBC Hgb Hct MCV MCH MCHC RDW Plt Count MPV Sodium Potassium Chloride Carbon Dioxide Anion Gap BUN Creatinine Estimated GFR POC Glucose 65 L 128 H Random Glucose Calcium Microbiology 08/14/18 12:25 Blood - Peripheral Aerobic Blood Culture - Preliminary No growth in 3 days 08/14/18 12:25 Blood - Peripheral Anaerobic Blood Culture - Preliminary No growth in 3 days 08/14/18 12:25 Blood - Peripheral Aerobic Blood Culture - Preliminary No growth in 3 days 08/14/18 12:25 Blood - Peripheral Anaerobic Blood Culture - Preliminary No growth in 3 days Assessment and Plan - Assessment (1) DKA, type 1 Code(s): E10.10 - Type 1 diabetes mellitus with ketoacidosis without coma Status: Acute (2) Acute kidney failure Code(s): N17.9 - Acute kidney failure, unspecified Status: Acute (3) Metabolic acidemia Code(s): E87.2 - Acidosis Status: Acute (4) Diabetes mellitus type 2, insulin dependent Code(s): E11.9 - Type 2 diabetes mellitus without complications; Z79.4 - termite exterminator helper (current) use of insulin Status: Chronic - Plan 58-year-old male admitted with with DKA, acute renal failure, and severe sepsis. DKA: - Status post ICU course. Recovering. - Blood glucose improving. On Levemir 35 units nightly. Continue NovoLog 5 units before meals. -Blood sugar 65 this morning, will adjust Levemir. Patient not taking much p.o. Acute metabolic encephalopathy History of alcohol abuse -Encephalopathy and blurred vision secondary to severe hyperglycemia, now resolved -Supplement multivitamin thiamine -Closely for alcohol withdrawal Nausea vomiting diarrhea -ADA diet, IV famotidine -CT abdomen pelvis unremarkable. Acute kidney failure Hypokalemia -Renal functions recovered. Discontinued IV fluid. Encourage oral hydration. -K 3.3, replace and repeat at 12 noon Severe sepsis Severe hypothermia -This could have been secondary to a viral gastroenteritis leading to severe DKA. -Patient has been on broad-spectrum IV antibiotics. All cultures are negative. -Antibiotics were discontinued Odynophagia, noted with thrush. Likely esophagitis candidiasis Patient not taking much p.o.,enc. PO intake -Nystatin swish and swallow, add Diflucan 100 mg p.o. daily -Speech and swallow eval Consult GI for evaluation PROPH: -Bilateral lower extremity SCDs. Lovenox/famotidine Will hold on DC today, pt. with painful swallowing, not taking PO well Labs in am Code Status: Full code Discussed Condition With: RN, patient Discharge Planning: Possible discharge today or tomorrow (1) DKA, type 1 Qualifiers: Diabetes mellitus complication detail: without coma Qualified Code(s): E10.10 - Type 1 diabetes mellitus with ketoacidosis without coma (2) Acute kidney failure Qualifiers: Acute renal failure type: with other specified pathological lesion Qualified Code(s): N17.8 - Other acute kidney failure
[2018-08-18] MEDS: Sodium Chloride 0.9% 2 ML Flush BID IV.FLUSH SCH ×2 (10:25→22:31)
[2018-08-18] MEDS: Nystatin Liq 500,000 UNIT/5 ML UDC SWISH-SWAL SCH ×4 (11:12→22:18)
[2018-08-18] MEDS ORDERED: Nystatin Liq 500,000 UNIT/5 ML UDC SWISH-SWAL SCH (13:00)
[2018-08-18] MEDS: Insulin Detemir Inj 1,000 UNIT/10 ML Vial SQ SCH (22:18)
[2018-08-18] MEDS: Zolpidem Tartrate 5 MG Tablet PO PRN (22:19)
[2018-08-19] MEDS: Chlorhexidine Gluconate 2% 1 Pack (2 Cloths) TOPICAL SCH (05:49)
[2018-08-19 08:06] LABS: Anion Gap 6 meq/L (5-15); Blood Urea Nitrogen 14 mg/dL (7-18); Calcium 8.8 mg/dL (8.5-10.1); Carbon Dioxide 31.2 meq/L (21.0-32.0); Chloride 102 meq/L (98-107); Glomerular Filtration Rate Greater Than 89 mL/min (>89); Glucose,Random 105 mg/dL (74-106); Potassium 3.5 meq/L (3.5-5.1); Sodium 139 meq/L (136-145)
--- NOTE | 2018-08-19 09:15 | P.PNFP ---
Subjective Interval history: Still not able to eat, being treated for thrush. Denies Cp, SOB, NV abdominal pain, or diarrhea Results - Labs Result diagrams: 08/18/18 06:41 08/19/18 05:30 Abnormal lab results 08/18/18 08/18/18 08/18/18 Range/Units 12:31 16:53 17:54 POC Glucose 196 H 255 H 258 H (68-110) mg/dl 08/18/18 Range/Units 22:15 POC Glucose 218 H (68-110) mg/dl BMP 08/18/18 08/19/18 11:10 05:30 Sodium 139 Potassium 3.8 3.5 Chloride 102 Carbon Dioxide 31.2 BUN 14 Creatinine 0.75 Calcium 8.8 Physical Exam Vital signs: Vital Signs 08/18/18 12:00 08/18/18 16:00 08/18/18 20:00 Temperature 98.8 F 98.4 F 98.7 F Pulse Rate 93 H 96 H 101 H Respiratory Rate 16 16 16 Blood Pressure 133/83 158/95 H 151/81 H Pulse Oximetry 94 L 96 95 08/19/18 00:00 08/19/18 04:00 08/19/18 08:00 Temperature 98.3 F 98.5 F 100.1 F H Pulse Rate 102 H 94 H 101 H Respiratory Rate 16 16 16 Blood Pressure 143/83 H 153/84 H 134/81 Pulse Oximetry 95 99 94 L Intake & Output 08/18/18 08/19/18 08/19/18 18:59 06:59 18:59 Intake Total 480 / 480 340 / 340 Output Total 550 / 550 Balance 480 / 480 -210 / -210 Weight 79.3 kg Intake: Oral 480 / 480 340 / 340 Output: Urine 550 / 550 Other: # Voids 2 Date of Last Bowel Movement 08/18/18 08/18/18 # Bowel Movements 2 0 - Constitutional no acute distress - Routine HEENT Exam Comments: Throat red with white patches - Routine Neck Exam Present: supple - Routine Respiratory Exam Present: CTA bilaterally - Routine Cardiovascular Exam Present: S1, S2 - Routine Abdominal Exam Present: soft - Routine Extremities Exam Present: pulses intact - Routine Skin Exam Present: dry, warm - Routine Neurological Exam Present: alert, oriented X3 - Routine Psychiatric Exam Present: cooperative - Urinary Catheter Management Indwelling Urethral Catheter Cath placed during this visit: yes Urethral indwelling: No Insertion date: 08/14/18 Insertion time: 12:20 Assessment and Plan - Assessment (1) DKA, type 1 Code(s): E10.10 - Type 1 diabetes mellitus with ketoacidosis without coma Status: Acute Plan: Recovering from DKA as lytes and lactic acid cont to improve. (2) Acute kidney failure Code(s): N17.9 - Acute kidney failure, unspecified Status: Acute Plan: resolved (3) Metabolic acidemia Code(s): E87.2 - Acidosis Status: Acute Plan: resolved (4) Diabetes mellitus type 2, insulin dependent Code(s): E11.9 - Type 2 diabetes mellitus without complications; Z79.4 - retirement (current) use of insulin Status: Chronic Plan: NIX, w/ sc and pre meals. - Assessment and Plan 08/19/18 Patient seen today he is complaining of pain to throat, he is not able to eat. He was started on Diflucan and swish n swallow yesterday. He voices slight improvement. BS have been stable. We will dc when he is able to eat. he would like something for pain, will add tramadol prn. (1) DKA, type 1 Qualifiers: Diabetes mellitus complication detail: without coma Qualified Code(s): E10.10 - Type 1 diabetes mellitus with ketoacidosis without coma (2) Acute kidney failure Qualifiers: Acute renal failure type: with other specified pathological lesion Qualified Code(s): N17.8 - Other acute kidney failure
[2018-08-19] MEDS: Sodium Chloride 0.9% 2 ML Flush BID IV.FLUSH SCH ×2 (09:41→21:07)
[2018-08-19] MEDS: Insulin NovoLOG Aspart Correctional Sugar Inj SQ SCH ×4 (09:41→21:06)
[2018-08-19] MEDS: Nystatin Liq 500,000 UNIT/5 ML UDC SWISH-SWAL SCH ×4 (09:41→21:07)
[2018-08-19] MEDS: Insulin Detemir Inj 1,000 UNIT/10 ML Vial SQ SCH (21:06)
[2018-08-19] MEDS: Zolpidem Tartrate 5 MG Tablet PO PRN (21:07)
[2018-08-20 05:39] VITALS: O2SAT 94
[2018-08-20 08:26] VITALS: BP 125/75; RESP 18; TEMP 98
[2018-08-20] MEDS: Insulin NovoLOG Aspart Correctional Sugar Inj SQ SCH (09:13)
[2018-08-20] MEDS: Nystatin Liq 500,000 UNIT/5 ML UDC SWISH-SWAL SCH (09:14)
[2018-08-20] MEDS: Sodium Chloride 0.9% 2 ML Flush BID IV.FLUSH SCH (09:15)
--- NOTE | 2018-08-20 11:10 | P.DS ---
Date of admission: 08/14/18 11:49 Primary care physician: Darryl Steward DO Brief History from admission: Patient is a 58-year-old male with past medical history significant for insulin-dependent type 2 diabetes for last 10 years who presented to the emergency department with severe intractable nausea and vomiting. He states that since yesterday morning he had been having nausea vomiting and some diarrhea associated with abdominal pain. No blood in stools no hematemesis. Because of nausea vomiting he did not take any of his insulin, and had been trying to hydrate himself with Gatorade. He denies any fever but subjectively felt cold. He did have flulike symptoms. ER workup showed a temperature of 89.7, white count was 31,000, he was also found to be in severe DKA pH of 6.8 bicarb 3 blood sugar of 1014 BUN was 41 creatinine 2.6. Sodium was 127 potassium 6.6 lactic acid was elevated at 4.8 and beta hydroxybutyrate was 14.13. Patient was given 2 normal saline boluses, was given insulin push and critical care medicine was consulted for admission. I have ordered broad- spectrum antibiotics after cultures are drawn. We will start patient on Zosyn and give 1 dose vancomycin. Check troponin to rule out cardiac ischemia. Stat transferred to [facility] ordered. Patient also placed on DKA protocol DS: Diagnosis - Discharge Diagnosis (1) DKA, type 1 Status: Acute (2) Acute kidney failure Status: Acute (3) Metabolic acidemia Status: Acute (4) Diabetes mellitus type 2, insulin dependent Status: Chronic DS: Medications - Discharge Medications Prescriptions: nystatin 5 ml SWISH-SWAL QID 30 Days #1 ml DS: Summary Hospital Course: 64 y/o male with hx of IDDM, admitted for intractable nausea and vomiting, and flu like symptoms. Temperature was 89.7, wbc 31, potassium 6.6, lactic acid 4.8. His blood sugar 1014, beta hydroxybutyrate was 14.13. He was admitted to ICU under care of intensivists. He was placed on insulin drip, IVF Fluids, given vancomycin and Zosyn. He responded well, cont to improve and transferred to Medical floor. He then developed thrush, started on Diflucan and swish n swallow. He has some difficulty swallowing r/t thrush, ST evaluated, determined he is ok with mechanical soft with no sign of aspiration until symptoms improve. He is eager to go home. - Time Spent with Patient Total time spent providing and/or coordinating discharge services: 35 Greater than 30 minutes - Quality: AMI Clinical Trial Participant: No - Quality: Stroke Symptom Onset Unknown: No - Quality: VTE Deep Vein Thrombosis/Pulmonary Embolism Present on Admission: No Exam Vital signs: Vital Signs 08/19/18 12:00 08/19/18 16:00 08/19/18 20:00 Temperature 98.7 F 98.1 F 98.6 F Pulse Rate 101 H 94 H 104 H Respiratory Rate 16 18 18 Blood Pressure 148/74 H 137/82 137/78 Pulse Oximetry 95 95 96 08/20/18 00:00 08/20/18 03:34 08/20/18 04:00 Temperature 98 F 98.3 F Pulse Rate 100 H 80 Respiratory Rate 17 18 17 Blood Pressure 144/78 H 140/72 Pulse Oximetry 95 94 L 08/20/18 08:00 Temperature 98 F Pulse Rate 81 Respiratory Rate 18 Blood Pressure 125/75 Pulse Oximetry 94 L Intake & Output 08/19/18 08/20/18 08/20/18 18:59 06:59 18:59 Intake Total 440 / 440 Output Total 400 / 400 Balance 40 / 40 Weight 78.7 kg Intake: Oral 440 / 440 Output: Urine 400 / 400 Other: # Voids 2 Date of Last Bowel Movement 08/19/18 # Bowel Movements 0 0 - Constitutional no acute distress - Routine HEENT Exam Head: Present: normocephalic Comments: Erythema, with white patches - Routine Respiratory Exam Present: CTA bilaterally - Routine Cardiovascular Exam Present: S1, S2 - Routine Abdominal Exam Present: soft, normoactive bowel sounds - Routine Skin Exam Present: dry, rash Comments: back - Routine Neurological Exam Present: alert, oriented X3 Results Procedures completed during hospitalization: n/a Labs on day of discharge: Labs from last 24 hours 08/20/18 08/20/18 08/20/18 09:56 09:56 09:12 Puncture Site Sodium Pending Potassium Pending Chloride Pending Carbon Dioxide Pending Anion Gap Pending BUN Pending Creatinine Pending POC Glucose 140 H Random Glucose Pending Hemoglobin A1c Pending Calcium Pending 08/19/18 08/19/18 08/19/18 20:54 17:07 12:01 Puncture Site Sodium Potassium Chloride Carbon Dioxide Anion Gap BUN Creatinine POC Glucose 163 H 299 H 263 H Random Glucose Hemoglobin A1c Calcium 08/14/18 11:26 Puncture Site Left radial Sodium Potassium Chloride Carbon Dioxide Anion Gap BUN Creatinine POC Glucose Random Glucose Hemoglobin A1c Calcium - Impressions ITS Impressions Chest X-Ray 08/14/18 11:05 CONCLUSION: No acute cardiopulmonary process. Abdomen/Pelvis CT 08/15/18 00:00 CONCLUSION: 1. 3 mm nonobstructing calyceal calculus in the superior pole of the right kidney. 2. Trace bilateral pleural effusions with presumed compressive atelectasis at the lung bases. 3. Otherwise, no acute unenhanced CT abnormality. Discharge Plan - Discharge Disposition Patient Disposition: Discharge Home - Discharge Condition Condition: Good - Discharge Order Discharge Orders: Discharge Order (Routine); Ordered 08/20/18 Ordered By: Andreia Mendez - Discharge Details Anticipated Discharge Date: 08/18/18 Discharge Comment: Follw up with Dr Steward next week, Call for apt on Thursday [phone] - Physicians Team Primary Care Provider: Darryl Steward Attending Provider: Darryl Steward Other Providers: Yanet Sanchez MD ; Darryl Steward, DO ; Amy Mancini MD
[2018-08-20 11:16] LABS: Anion Gap 8 meq/L (5-15); Blood Urea Nitrogen 17 mg/dL (7-18); Calcium 8.7 mg/dL (8.5-10.1); Carbon Dioxide 30.2 meq/L (21.0-32.0); Chloride 98 meq/L (98-107); Glomerular Filtration Rate Greater Than 89 mL/min (>89); Glucose,Random 198 mg/dL (74-106); Potassium 3.9 meq/L (3.5-5.1); Sodium 136 meq/L (136-145)
--- NOTE | 2018-08-20 12:31 | P.DIET ---
Nutritional Evaluation Type of nutrition evaluation: initial Nutrition screening: [facility] [place] ([place]iet education ) Objective - Diagnosis Type 2 Diabetes mellitus Assessment Assessment: [facility] [place] diet education; Pt and fiance were provided with diet education regarding carbohydrate controlled diet. Discussed and provided handouts regarding carbohydrate sources, carbohydrate distribution throughout the day, and meal planning. Both pt and fiance very receptive to information and eager to make changes. Plan to answer further questions as needed. Recommendations: 1. Provided diet education regarding carbohydrate controlled diet 2. Plan to answer further questions as needed
[2018-08-20 17:34] LABS: Hemoglobin A1c 9.3 % (4.3-6.0)
[2018-08-20 17:40] VITALS: PULSE 97
== END 2018-08-20 12:25 | disposition home or self-care (01) | DRG 871 ==
LOC: PHED 10:19 → PHEDA 11:49 → HIMC 13:40 → N04 08-15 10:52
PROVIDERS: ADMIT Family Medicine; ATTEND Family Medicine
DX: G93.41 Metabolic encephalopathy; Z23 Encounter for immunization; A08.4 Viral intestinal infection, unspecified; Z79.4 Long term (current) use of insulin; E87.6 Hypokalemia; R65.20 Severe sepsis without septic shock; N17.9 Acute kidney failure, unspecified; B37.0 Candidal stomatitis; F10.10 Alcohol abuse, uncomplicated; B37.81 Candidal esophagitis; A41.89 Other specified sepsis; E11.10 Type 2 diabetes mellitus with ketoacidosis without coma
CPT/HCPCS: 36600; 71010; 71045; 74176; 80048; 80053; 81001; 82010; 82805; 82947; 82948; 82962; 83036; 83605; 84100; 84132; 84443; 84484; 85025; 85027; 87040; 87275; 87276; 87641; 87804; 90658; 90686; 90774; 92526; 92610; 93005; 94150; 96374; 99291; 99292; C8952; G0195; J1815; J1817; J2405; J2543; J3370; J3411; J3480; J7030; J7040; J7042; J7050; Q2038